=== PATIENT | female | born 1945 | race Caucasian/White ===

== ENCOUNTER 2019-08-01 14:56 | Outpatient (CLI) | payer BC | END 2019-08-01 14:57 | disposition home or self-care (01) | LOC: LAB 14:56 | PROVIDERS: ATTEND Internal Medicine Cardiovascular Disease | DX: I50.9 Heart failure, unspecified (principal); R06.89 Other abnormalities of breathing | CPT/HCPCS: 36415; 83735; 83880 ==

== ENCOUNTER 2020-05-19 10:34 | Outpatient (CLI) | payer BC | END 2020-05-19 10:35 | disposition home or self-care (01) | LOC: COV 10:34 | PROVIDERS: ATTEND Family Medicine | DX: R50.9 Fever, unspecified (principal); M79.10 Myalgia, unspecified site; R53.83 Other fatigue; R19.7 Diarrhea, unspecified; R11.10 Vomiting, unspecified; Z20.828 Contact with and (suspected) exposure to other viral communicable diseases ==

== ENCOUNTER 2021-01-31 14:32 | Outpatient (CLI) | payer BC | END 2021-01-31 14:33 | disposition home or self-care (01) | LOC: RT 14:32 | PROVIDERS: ATTEND Internal Medicine Cardiovascular Disease | DX: Z79.899 Other long term (current) drug therapy (principal) | CPT/HCPCS: 93005 ==

== ENCOUNTER 2021-02-19 13:56 | Outpatient (CLI) | payer MEDICARE | END 2021-02-19 13:57 | disposition home or self-care (01) | LOC: RT 13:56 | PROVIDERS: ATTEND Internal Medicine Cardiovascular Disease | DX: I48.0 Paroxysmal atrial fibrillation (principal); Z79.899 Other long term (current) drug therapy | CPT/HCPCS: 93005 ==

== ENCOUNTER 2023-12-13 11:40 | Outpatient (CLI) | payer MEDICARE | END 2023-12-13 22:55 | disposition EMS.NT | LOC: EMS 11:40 | DX: R58 Hemorrhage, not elsewhere classified (principal) ==

== ENCOUNTER 2025-03-14 14:40 | Inpatient (IN) ==
--- OUTSIDE RECORDS SUMMARY | 2025-03-14 15:17 | EXTERNAL MEDICAL SUMMARY RPT | Continuity of Care Document ---
Author Organization [place] Address [address] [place] [id number] Phone Problems date description facility 2024-12-24 10:49 Chronic systolic (congestive) h eart failure [facility] 2024-12-24 10:49 Other heart failure [facility] 2024-12-30 09:48 Chronic systolic (congestive) h eart failure [facility] 2024-12-30 09:48 Other heart failure [facility] 2025-01-02 13:13 Chronic systolic (congestive) h eart failure [facility] 2025-01-02 13:13 Other heart failure [facility] Social History date description facility
[2025-03-14 15:36] LABS: HCT - HEMATOCRIT 42.0 % (37.0-47.0); HGB - HEMOGLOBIN 13.6 g/dL (12.0-16.0); MEAN PLATELET VOLUME 10.8 fL (7.9-10.8); NRBC ABSOLUTE COUNT (AUTO) 0.00 x10^3/uL; NUCLEATED RED BLOOD CELLS AUTO 0.0 /100WBC; PLT - PLATELET COUNT 136 10^3/uL (130-450); RED CELL DISTRIBUTION WIDTH 17.2 % (12.0-15.0)
[2025-03-14 15:47] LABS: ALT ALANINE AMINOTRANSFERASE 23.0 IU/L (10-60); AST ASPARTATE AMINOTRANSFERASE 19.0 IU/L (10-42); BUN - BLOOD UREA NITROGEN 26.0 mg/dL (6-20); CARBON DIOXIDE - CO2 29.0 mmol/L (21-32); CREATININE 1.1 mg/dL (0.6-1.3); GFR - MDRD 48.0 (>89)
[2025-03-14 16:40] LABS: KETONES,URINE (UA) NEGATIVE (NEGATIVE); OCCULT BLOOD,URINE TRACE-LYSED (NEGATIVE)
[2025-03-14 16:41] LABS: GLUCOSE, URINE (UA) 100 mg/dL (NEGATIVE)
[2025-03-14 16:45] LABS: SQUAMOUS EPITHELIAL CELL,UR FEW Squamous (<= Few)
--- NOTE | 2025-03-14 17:01 | ED Physician Documentation ---
History of Present Illness Stated complaint Stated Complaint: ABD PX, NAUSEA Chief complaint Chief Complaint: Abd Pain History obtained from History obtained from: Patient History of Present Illness Pain level max: 8 Pain level now: 6 Additonal information Additional information: Patient is a 72-year-old female states that she has been feeling like she has been constipated for the past 3 days with the abdominal pain and discomfort. States that no change with senna, Colace, MiraLAX and a suppository today. Had increasing abdominal pain today, contacted her PCP who recommended she come to the emergency department for evaluation. No fevers. No chills. Nausea but no vomiting. Has had a cholecystectomy in the past but states no other abdominal surgeries. No urinary symptoms. Review of Systems Constitutional Denies: Fever or Chills Ears, nose, mouth, and throat Denies: Neck pain Respiratory Denies: Cough Gastrointestinal Reports: Nausea; Denies: Vomiting, [place]arcus blood emesis, Coffee grounds in vomit, Melena or Blood in stool Genitourinary Denies: Painful urination, Urinary frequency, Urinary urgency or Urinary incontinence Musculoskeletal Denies: Back pain or Neck pain Integumentary/Breast Denies: Rash Meds/Allgy Home Medications Ambulatory Orders Medication Instructions Recorded Confirmed apixaban 5 mg tablet (Eliquis) 5 mg PO BID 03/03/24 atorvastatin 20 mg tablet 20 mg PO DAILY 03/03/2402/26 fentanyl 12 mcg/hr transdermal 1 patch topical Q72H 10/21/24 patch gabapentin 300 mg capsule 300 mg PO BID 03/03/2410/21 ondansetron HCl 4 mg tablet 4 mg PO Q8H PRN nausea and 03/03/24 10/21/24 vomiting #20 tabs prochlorperazine maleate 10 mg 10 mg PO QID PRN nausea and 10/17/24 10/21/24 tablet (Compazine) vomiting #10 tabs amiodarone 200 mg tablet 200 mg PO DAILY 10/21/24 duloxetine 30 mg capsule,delayed 30 mg PO DAILY 03/14/25 release fentanyl 25 mcg/hr transdermal 1 patch transdermal Q72 H 10/21/24 10/21/24 patch gabapentin 100 mg capsule 100 mg PO QPM PRN pain 10/2110/21/24 metoprolol succinate 25 mg 25 mg PO DAILY 10/21/24 tablet,extended release 24 hr omeprazole 20 mg capsule,delayed 20 mg PO DAILY 10/21/24 release dronedarone 400 mg tablet (Multaq) 400 mg PO BID 10/2403/14/25 furosemide 20 mg tablet (Lasix) 20 mg PO BID #60 tabs 10/24/24 03/14/25 nitrofurantoin 100 mg PO BID #6 caps monohydrate/macrocrystals 100 mg capsule potassium chloride 20 mEq 20 meq PO DAILY #30 tabs tablet,extended release(part/cryst) (Klor-Con M) Allergies Allergies Allergy/AdvReac Type Severity Reaction Status Date / Time cephalexin (From Keflex) Allergy Severe Rash Verified 03/14/25 16:30 meperidine (From Demerol) AdvReac Intermediate Nausea Verified 03/14/25 16:30 oxycodone AdvReac Intermediate Nausea Verified 03/14/25 16:30 PFSH Active Problems All Active Problems (Updated 03/14/25 @ 19:05 by Paul Harrington MD) Pancreatitis (Acute) Hypokalemia (Acute) UTI due to Klebsiella species (Acute) Wide-complex tachycardia (Acute) Elevated liver enzymes (Acute) Acute kidney injury superimposed on chronic kidney disease (Acute) Heart failure (Acute) Chronic renal insufficiency (Acute) Hypercalcemia (Acute) Cardiomyopathy (Acute) Intractable nausea and vomiting (Acute) Carpal tunnel syndrome (Acute) Nausea (Acute) Wrist fracture (Acute) Medical History Medical History (Updated 03/14/25 @ 19:05 by Paul Harrington MD) Hyponatremia Social History Social History If you are a former smoker, when did you quit? (Date/Year): 1967 Number of Years Smoked: 4 Living arrangement: At home Marital Status: Living Condition: Alone Support Person: No Physical Activity: Walking Level: Independent Do you feel safe in your home environment?: Yes History of physical, verbal, emotional, or financial abuse?: No ETOH Use: Wine Frequency: Daily Substance Use: denies use Are you sexually active?: No POLST Patient has POLST: No Exam Exam Vital Signs: Vital Signs x48h Temp Pulse Resp BP Pulse Ox 03/14/25 20:00 78 18 117/60 98 03/14/25 18:11 70 111/71 97 03/14/25 16:51 63 117/58 L 94 03/14/25 14:51 36 C L 75 18 123/62 96 Constitutional normal general appearance and no apparent distress HENMT oropharynx normal moist mucous membranes Eyes PERRL Neck/C-Spine visual inspection normal Respiratory breath sounds equal bilaterally, normal respiratory effort and clear to auscultation bilaterally Cardiovascular normal heart rate noted and regular rhythm noted Gastrointestinal abdomen normal to inspection, abdomen soft to palpation and nondistended Diffusely tender to palpation without peritoneal signs. Genitourinary no CVA tenderness Extremities no edema Neurology speech normal Psychiatry mental status grossly normal and oriented x3 Skin skin color normal Results Vitals Vitals: Vital Signs - 24 hr 03/14/25 14:51 03/14/25 16:51 03/14/25 18:11 Temperature 36 C L Pulse Rate 75 63 70 Respiratory Rate 18 Blood Pressure 123/62 117/58 L 111/71 O2 Saturation 96 94 97 O2 Source Room air Room air Pain Intensity 8 03/14/25 19:21 03/14/25 20:00 03/14/25 21:15 Temperature Pulse Rate 78 Respiratory Rate 18 Blood Pressure 117/60 O2 Saturation 98 O2 Source Room air Pain Intensity 5 9 9 Oxygen O2 Source Room air Labs Labs: Laboratory Tests 03/14/25 03/14/25 15:04 15:29 WBC 12.1 H RBC 4.72 Hgb 13.6 Hct 42.0 MCV 89.0 MCH 28.8 MCHC 32.4 RDW 17.2 H Plt Count 136 MPV 10.8 Neut # (Auto) 10.7 H Lymph # (Auto) 0.3 L [place] # (Auto) 1.0 Eos # (Auto) 0.0 Baso # (Auto) 0.0 Absolute Nucleated RBC 0.00 Nucleated RBC % 0.0 Sodium 133 L Potassium 4.0 Chloride 93 L Carbon Dioxide 29 Anion Gap 11.0 BUN 26 H Creatinine 1.1 Estimated GFR (MDRD) 48 L Glucose 75 Calcium 10.7 H Total Bilirubin 1.3 H AST 19 ALT 23 Alkaline Phosphatase 95 Total Protein 5.9 L Albumin 3.5 Globulin 2.4 Albumin/Globulin Ratio 1.5 Lipase 44 Urine Color YELLOW Urine Clarity CLEAR Urine pH 6.0 Ur Specific [place] 1.015 Urine Protein NEGATIVE Urine Glucose (UA) 100 H Urine Ketones NEGATIVE Urine Occult Blood TRACE-LYSED Urine Nitrite NEGATIVE Urine Bilirubin NEGATIVE Urine Urobilinogen 0.2 (NORMAL) Ur Leukocyte Esterase NEGATIVE Urine RBC 0-5 Urine WBC 0-3 Ur Squamous Epith Cells FEW Squamous Urine Bacteria Rare Urine Mucus Few Strands Ur Microscopic Review INDICATED Urine Culture Comments NOT INDICATED Rads (name of study) ct abd/pel: Relevant Findings:: Final report received PD Medical Decision Making ED course Complexity details: reviewed results, considered differential and d/w patient ED course: 80-year-old female with abdominal pain. She has interstitial pancreatitis on CT scan. Her lipase is normal, white blood cell count mildly elevated. Started on IV fluids, pain well-controlled. No beds available in the hospital tonight, therefore will be boarded in the emergency department overnight pending bed availability. Patient signed out to Dr. Power overnight. This document was made in part using voice recognition software. While efforts are made to proofread this document, sound alike and grammatical errors may occur. Discharge Plan Discharge Patient Disposition: 66 [facility] DC/Xfer Condition: Good Clinical Impression: Pancreatitis Qualifiers: Chronicity: acute Pancreatitis type: unspecified pancreatitis type Acute pancreatitis complication: unspecified Qualified Code(s): K85.90 - Acute pancreatitis without necrosis or infection, unspecified Prescriptions: No Action Eliquis 5 mg tablet 5 mg PO BID atorvastatin 20 mg tablet 20 mg PO DAILY Patient Comments: take 1 tablet by mouth once daily fentanyl 12 mcg/hr patch 72 hour 1 patch topical Q72H Patient Comments: apply 1 patch to SKIN every 72 hours for chronic pain ROTATE APPLICATION SITE. MUST LAST 30 DAYS gabapentin 300 mg capsule 300 mg PO BID Patient Comments: take 1 capsule by mouth twice a day ondansetron HCl 4 mg tablet 4 mg PO Q8H PRN (Reason: nausea and vomiting) Qty: 20 0RF prochlorperazine maleate [Compazine] 10 mg tablet 10 mg PO QID PRN (Reason: nausea and vomiting) Qty: 10 0RF amiodarone 200 mg tablet 200 mg PO DAILY Patient Comments: take 1 tablet by mouth once daily duloxetine 30 mg capsule,delayed release(DR/EC) 30 mg PO DAILY Patient Comments: take 1 capsule by mouth once daily gabapentin 100 mg capsule 100 mg PO QPM PRN (Reason: pain) Patient Comments: take 1 capsule by mouth once daily at bedtime if needed IN ADDITION TO 300 MG CAPSULE metoprolol succinate 25 mg tablet extended release 24 hr 25 mg PO DAILY Patient Comments: take 1 tablet by mouth once daily omeprazole 20 mg capsule,delayed release(DR/EC) 20 mg PO DAILY Patient Comments: take 1 capsule by mouth once daily 30 MINUTES BEFORE A MEAL fentanyl 25 mcg/hr patch 72 hour 1 patch transdermal Q72H Rx Instructions: Apply 1 patch to skin every 72 hours nitrofurantoin monohyd/m-cryst 100 mg Capsule 100 mg PO BID Qty: 6 0RF furosemide [Lasix] 20 mg tablet 20 mg PO BID Qty: 60 2RF potassium chloride [Klor-Con M20] 20 mEq tablet,ER particles/crystals 20 meq PO DAILY Qty: 30 2RF Multaq 400 mg tablet 400 mg PO BID Patient Comments: take 1 tablet by mouth three times a day with meals Print Language: Argentine
--- NOTE | 2025-03-14 18:36 | CT Report ---
PROCEDURE: CT Abdomen/Pelvis W INDICATIONS: diffuse abd pain x 3 days CONTRAST: omni 300, 100ml TECHNIQUE: After the administration of intravenous contrast, a CT scan of the abdomen and pelvis was performed. Images were recorded and evaluated at appropriate window settings. Reformats: coronal and sagittal. For radiation dose reduction, the following was used: automated exposure control, adjustment of mA and/or kV according to patient size. COMPARISON: None. FINDINGS: Image quality: Diagnostic. Lower chest: Cardiomegaly. Partially imaged cardiac pacemaker. Moderate hiatal hernia. Liver: No contour-deforming mass. Gallbladder: Cholecystectomy. Biliary tree: No intrahepatic or extrahepatic dilation, accounting for age. Spleen: No splenomegaly. Pancreas: Peripancreatic fat stranding. Heterogenous appearance of the pancreas with enlargement of the head. Multiple new cystic areas of hypoattenuation which may represent contrast phase timing. No peripancreatic fluid collection. Adrenals: No adrenal nodule. Kidneys and ureters: No hydronephrosis. No contour-deforming mass. Stomach, bowel and peritoneum: No gastric or small bowel dilation. No abnormal wall thickening. Trace free intraperitoneal fluid. Appendix: Not identified. Lymph nodes: No central or retroperitoneal adenopathy. Vessels: No infrarenal aortic aneurysm. Reproductive organs: Right ovarian cyst measuring 2.3 cm in greatest dimension, unchanged. Bladder: No abnormal bladder wall thickening. No calcified bladder stones. Pelvic lymph nodes: No adenopathy by size criteria. Bones: Left innominate Paget's disease. Moderate degenerative changes of the lower lumbar spine. Other: Abdominal wall is intact. IMPRESSION: Acute interstitial edematous pancreatitis. The pancreatic head is substantially enlarged compared to prior examination which is presumed to be due to swelling. Follow-up examination in 1 to 3 months with dedicated pancreatic MRI or CT after acute process has resolved to exclude pancreatic mass recommended. Reviewed by: Suman Brenner MD on 03/14/2025 6:33 PM PDT Approved by: Suman Brenner MD on 03/14/2025 6:33 PM PDT Station ID: [email or web address]
[2025-03-14] MEDS: SODIUM CHLORIDE 0.9% 1,000 ML IV STA (19:21)
[2025-03-14] MEDS: HYDROmorphone 0.5 MG/0.5 ML SYRINGE IVP STA (19:21)
[2025-03-14] MEDS ORDERED: NALOXONE 0.4 MG/ML VIAL ONE (21:12)
[2025-03-14] MEDS: HYDROmorphone 0.5 MG/0.5 ML SYRINGE IVP PRN (21:15)
--- NOTE | 2025-03-14 22:14 | ED Physician Documentation ---
ED Addendum Addendum Addendum: I received signout/turnover of care on this patient from Dr. Harrington; please see his note for complete H&P. Test completed prior to turnover of care are consistent with acute interstitial pancreatitis. Patient is being held in the ED due to lack of available beds at [facility]. Care of patient is turned over the oncoming ED physician (Dr. Felder) at the end of my shift. Discharge Plan Discharge Patient Disposition: [facility] DC/Xfer Condition: Good Clinical Impression: Pancreatitis Qualifiers: Chronicity: acute Pancreatitis type: unspecified pancreatitis type Acute pancreatitis complication: unspecified Qualified Code(s): K85.90 - Acute pancreatitis without necrosis or infection, unspecified Prescriptions: No Action Eliquis 5 mg tablet 5 mg PO BID atorvastatin 20 mg tablet 20 mg PO DAILY Patient Comments: take 1 tablet by mouth once daily fentanyl 12 mcg/hr patch 72 hour 1 patch topical Q72H Patient Comments: apply 1 patch to SKIN every 72 hours for chronic pain ROTATE APPLICATION SITE. MUST LAST 30 DAYS gabapentin 300 mg capsule 300 mg PO BID Patient Comments: take 1 capsule by mouth twice a day ondansetron HCl 4 mg tablet 4 mg PO Q8H PRN (Reason: nausea and vomiting) Qty: 20 0RF amiodarone 200 mg tablet 200 mg PO DAILY Patient Comments: take 1 tablet by mouth once daily duloxetine 30 mg capsule,delayed release(DR/EC) 30 mg PO DAILY Patient Comments: take 1 capsule by mouth once daily gabapentin 100 mg capsule 100 mg PO QPM PRN (Reason: pain) Patient Comments: take 1 capsule by mouth once daily at bedtime if needed IN ADDITION TO 300 MG CAPSULE metoprolol succinate 25 mg tablet extended release 24 hr 25 mg PO DAILY Patient Comments: take 1 tablet by mouth once daily fentanyl 25 mcg/hr patch 72 hour 1 patch transdermal Q72H Rx Instructions: Apply 1 patch to skin every 72 hours potassium chloride [Klor-Con M20] 20 mEq tablet,ER particles/crystals 20 meq PO DAILY Qty: 30 2RF Multaq 400 mg tablet 400 mg PO BID Patient Comments: take 1 tablet by mouth three times a day with meals Jardiance 10 mg tablet 10 mg PO DAILY torsemide 20 mg tablet 20 mg PO BID Patient Comments: morning and after lunch metoprolol succinate 50 mg tablet extended release 24 hr 50 mg PO DAILY spironolactone 25 mg tablet 25 mg PO DAILY nystatin 100,000 unit/gram powder 1 applic TOPICAL DAILY nystatin 100,000 unit/gram cream 1 applic TOPICAL DAILY PRN (Reason: rash) Print Language: Kiswahili
[2025-03-14] MEDS: HYDROmorphone 1 MG/ML CARPUJECT IVP STA (22:50)
[2025-03-15] MEDS: SODIUM CHLORIDE 0.9% 1,000 ML IV STA (02:39)
[2025-03-15 07:02] LABS: HCT - HEMATOCRIT 39.5 % (37.0-47.0); HGB - HEMOGLOBIN 12.8 g/dL (12.0-16.0); MEAN PLATELET VOLUME 11.1 fL (7.9-10.8); NRBC ABSOLUTE COUNT (AUTO) 0.00 x10^3/uL; NUCLEATED RED BLOOD CELLS AUTO 0.0 /100WBC; PLT - PLATELET COUNT 127 10^3/uL (130-450); RED CELL DISTRIBUTION WIDTH 17.5 % (12.0-15.0)
--- NOTE | 2025-03-15 07:30 | ED Physician Documentation ---
ED Addendum Addendum Addendum: 80-year-old female handed off to me at [address] Power. Patient presented with worsening abdominal pain overnight, found to have interstitial pancreatitis. At time of handoff she was awaiting placement. During my shift she required additional pain control, and had a hypoglycemic episode in which her glucose dropped to 27. She was given D50, and started on D5 NS. She had stable blood sugars afterward. She was ultimately mated to the hospital during my shift and transferred to the floor. Otherwise remained stable. Discharge Plan Discharge Patient Disposition: 66 [facility] DC/Xfer Condition: Good Clinical Impression: Pancreatitis Qualifiers: Chronicity: acute Pancreatitis type: unspecified pancreatitis type Acute pancreatitis complication: unspecified Qualified Code(s): K85.90 - Acute pancreatitis without necrosis or infection, unspecified Interventions: ED Transfer Assessment Last Done: 03/15/25 16:50 Vitals documented within 30 minutes of discharge?: Yes
[2025-03-15 08:20] LABS: ALT ALANINE AMINOTRANSFERASE 21.0 IU/L (10-60); AST ASPARTATE AMINOTRANSFERASE 19.0 IU/L (10-42); BUN - BLOOD UREA NITROGEN 24.0 mg/dL (6-20); CARBON DIOXIDE - CO2 28.0 mmol/L (21-32); CREATININE 1.0 mg/dL (0.6-1.3); GFR - MDRD 53.0 (>89)
[2025-03-15] MEDS: DEXTROSE 50% ABBOJECT 25 GM/50 ML SYRINGE IVP STA (08:32)
[2025-03-15] MEDS: DEXTROSE 5%-0.9% NACL 1,000 ML IV STA (09:12)
[2025-03-15] MEDS: METOPROLOL SUCCINATE 25 MG TABLET PO SCH (09:36)
[2025-03-15] MEDS: APIXABAN 5 MG TABLET PO SCH (09:39)
[2025-03-15] MEDS: ATORVASTATIN 10 MG TABLET PO SCH (09:40)
[2025-03-15] MEDS: AMIODARONE 200 MG TABLET PO SCH (09:40)
--- NOTE | 2025-03-15 14:40 | HISTORY & PHYSICAL EXAMINATION ---
<Statement entered by Yayo Cruz, DO - 03/15/25 19:13> I was present with the DEVAUGHN student on the hospitalist service. I personally verified the history of present illness and performed the physical examination and medical decision making. I have verified the students documentation for this encounter and agree with the plan of care below. In addition very pleasant 80-year-old female with a past medical history of HFrEF (EF 20%), uncomplicated opioid dependence, hypertensive cardiomyopathy, hypertension, CKD, atrial fibrillation who is presenting with abdominal pain since last Monday and found to have acute interstitial edematous pancreatitis. No evidence of biliary involvement, normal liver enzymes, minimal bili increase, no ductal dilation. She has a history of cholecystectomy remotely. She still having a lot of pain on my exam. She is on chronic fentanyl patches for arthritis. She is not opiate juan. Will transition her to LR. She is hungry, and we will start early refeeding per guideline. I am increasing her fluid rate but not dramatically per the waterfall trial. Ideally would use NSAIDs, but not appropriate given her heart failure and renal history. Will schedule out Tylenol, oral and IV Dilaudid available for breakthrough pain with fairly liberal intervals. We added on additional labs on her admission including rechecking her CMP which was mostly normal. She has a low potassium that we will replete. Her LDH is low graciously. No signs of acute inflammation. Her PTH consistent with her outpatient record, and I am curious if this is contributing to her presentation. Will monitor lab in AM. Overall by Tyrese's criteria, her presentation is reassuring at this time. PCP note from today, patient is DNR. She has a POLST at home. We may repeat that this hospitalization. I updated her son Marvin by phone. He lives in [place] notably and is on [facility]. Chief Complaint Chief Complaint Chief Complaint: Abdominal pain History of Present Illness Admitted From Admitted From:: Home History Obtained From Records Reviewed: EHR History obtained from: Patient, EHR History of Present Illness HPI Comment/Other: Cyndie Rod is a 80-year-old female with past medical history of HFrEF, cardiomyopathy, a-fib, and wide complex tachycardia s/p bi-ventricular pacemaker who presents with 5 days of progressively worsening abdominal pain and CT abdomen findings consistent with pancreatitis. Ms. Rod's story begins on 03/10 when she felt constipated with general malaise, for which she took senna x 3 without relief. 03/11, she continued to feel constipation/malaise and consumed a dose of miralax and colace. She states she listened to her bowel tones which were still present. On 03/12, she took another dose of miralax and passed hard stool, which she describes as "1.5-2in rocks with some rabbit pellets." Evening of 03/13, her abdominal discomfort turned into severe abdominal pain for which she called her primary care provider, who advised her to seek urgent medical evaluation; she subsequently presented to [facility] ED. She describes her pain as 9-10/10 and sharp, cramping, tender, in the generalized abdomen. The location of pain varies, at times it is in the bilateral flank and sometimes localized to the RUQ. There is associated nausea, without vomiting. There is midepigastric tenderness. She has had decreased appetite, with only clear liquid consumption since 03/10. She hasn't noted any other bowel abnormalities aside from constipation, no melena. No urinary habit changes or hematuria. In the ED, workup was remarkable for leukocytosis to 12.9. UA neg. CT abdomen notable for acute interstitial edematous pancreatitis. She was started on maintenance NS. 03/15 AM she was hypoglycemic as low as BG 47 and switched to D5NS. She recieved analgesia for her abdominal pain with Dilaudid 0.5mg, for which she required every 2-4 hours. She remained in the ED until evening of 03/15 due to bed inavailability at [facility]. She is admitted to the Hospitalist service for further evaluation of pancreatitis. Meds/Allgy Home Medications Ambulatory Orders Medication Instructions Recorded Confirmed apixaban 5 mg tablet (Eliquis) 5 mg PO BID 03/03/24 atorvastatin 20 mg tablet 20 mg PO DAILY 03/03/2402/26 fentanyl 12 mcg/hr transdermal 1 patch topical Q72H 03/14/25 patch gabapentin 300 mg capsule 300 mg PO BID 03/03/2403/14 ondansetron HCl 4 mg tablet 4 mg PO Q8H PRN nausea and 03/03/24 03/14/25 vomiting #20 tabs amiodarone 200 mg tablet 200 mg PO DAILY 10/21/24 duloxetine 30 mg capsule,delayed 30 mg PO DAILY 03/14/25 release fentanyl 25 mcg/hr transdermal 1 patch transdermal Q72 H 10/21/24 03/14/25 patch gabapentin 100 mg capsule 100 mg PO QPM PRN pain 10/2103/14/25 metoprolol succinate 25 mg 25 mg PO DAILY 10/21/24 tablet,extended release 24 hr dronedarone 400 mg tablet (Multaq) 400 mg PO BID 10/2403/14/25 potassium chloride 20 mEq 20 meq PO DAILY #30 tabs 03/14/25 tablet,extended release(part/cryst) (Klor-Con M) empagliflozin 10 mg tablet 10 mg PO DAILY 03/14/25 (Jardiance) metoprolol succinate 50 mg 50 mg PO DAILY 03/14/25 tablet,extended release 24 hr nystatin 100,000 unit/gram topical 1 applic topical DA TOMÁS PRN rash 03/14/25 03/14/25 cream nystatin 100,000 unit/gram topical 1 applic topical DA TOMÁS rash 03/14/25 03/14/25 powder spironolactone 25 mg tablet 25 mg PO DAILY 03/14/25 torsemide 20 mg tablet 20 mg PO BID 03/14/25 Allergies Allergies Allergy/AdvReac Type Severity Reaction Status Date / Time cephalexin (From Keflex) Allergy Severe Rash Verified 03/14/25 16:30 meperidine (From Demerol) AdvReac Intermediate Nausea Verified 03/14/25 16:30 oxycodone AdvReac Intermediate Nausea Verified 03/14/25 16:30 PFS Active Problems All Active Problems (Updated 03/15/25 @ 18:56 by Yary Guzman) Hypertension, essential, benign (Acute 03/11/10) Back pain, lumbosacral (Acute 04/24/10) Uncomplicated opioid dependence (Acute) Leukocytosis (Acute) Hypoglycemia (Acute) Abdominal pain (Acute) Pancreatitis (Acute) Hypokalemia (Acute) Wide-complex tachycardia (Chronic) Heart failure (Acute) Chronic renal insufficiency (Chronic) Hypercalcemia (Acute) Cardiomyopathy (Acute) Carpal tunnel syndrome (Chronic) Medical History Medical History (Updated 03/15/25 @ 18:56 by Yary Guzman) Lupus (03/11/10) Clostridium difficile colitis (03/11/10) Anemia (12/23/08) History of arthritis Wrist fracture History of cardiac pacemaker Hyponatremia Surgical History Surgical History (Updated 03/15/25 @ 18:18 by Yayo Cruz, DO) History of cholecystectomy Social History Social History (Updated 03/15/25 @ 19:09 by Yary Guzman) Smoking Status: Former smoker If you are a former smoker, when did you quit? (Date/Year): 1966 Number of Years Smoked: 6 Do you dip or chew tobacco?: No Do you vape?: No Living arrangement: At home Marital Status: Living Condition: Alone Support Person: No Relationship Notes: Son who lives in [place] and a close niece who lives in [place] Physical Activity: Walking Level: Independent Do you feel safe in your home environment?: Yes History of physical, verbal, emotional, or financial abuse?: No ETOH Use: Wine Frequency: Occasional ETOH - Additional Notes: 1 glass of wine rarely during special occasions, last drink was a few months ago Substance Use: denies use Occupation - Current: Previous ICU/ER nurse for 30 years at [employer] Retired: Yes POLST Patient has POLST: No POLST CPR Status: Do Not Attempt Resuscitation (DNAR) / Allow Natural Review of Systems Status of ROS: 10 or more systems reviewed and unremarkable except as noted in history and below Constitutional Reports: Chills Gastrointestinal Reports: Abdominal pain, Nausea and Poor appetite Prior Level of Functionality: Independently performs all ADLs at baselines. Does not use an assistive device. Exam Exam Vital Signs: Vital Signs x48h Temp Pulse Pulse Resp BP BP Pulse Ox 03/15/25 17:04 36.5 C 70 16 111/53 L 96 03/15/25 15:00 70 18 115/63 93 03/15/25 13:00 36.8 C 68 18 92/56 L 91 L Constitutional: Overall ill-appearing older adult female in NAD, she is in discomfort and repositions frequently. Integument: Hemosiderin deposition BLE. No open wounds or sores. Skin smooth, warm, dry and intact. HEENT: Wearing corrective lenses. Normocephalic, atraumatic. Facial features symmetrical at rest and with movement. Neck supple, no tenderness to palpation. Respiratory: Shallow respirations, pain-limited deep inspiration. Chest expansion symmetric. Lungs clear bilaterally on auscultation. No crackles, wheezes, rhonchi. Cardiac: Regular S1, S2 heart sounds. No murmur detected. Peripheral Vascular: 1-2+ BLE and pedal edema. Varicose veins. Venous stasis dermatitis. Warm and non-cyanotic. No edema. Gastrointestinal: Abdominal tenderness to deep palpation in all quadrants. Guarding to light palpation. No ecchymosis. Abdomen is warm and soft. Symmetrical, round contour. Musculoskeletal: Forward trunk lean during ambulation, likely secondary to pain. Full ROM in upper and lower extremities. Neurological: Alert, oriented x 4 to self, place, time, situation. Recent and remote memory intact. Calm, cooperative, follows commands. Mood appropriate to situation. Thought process coherent with appropriate judgment. Speech fluent. PERRLA. Motor strength and sensation grossly intact. Conclusion/Plan Problem List (1) Pancreatitis: Qualifiers: Acute pancreatitis complication: unspecified Chronicity: acute P ancreatitis type: unspecified pancreatitis type Qualified Code(s): K85.90 - Acute pancreatitis without necrosis or infection, unspecified (2) Leukocytosis: Qualifiers: Leukocytosis type: bandemia Qualified Code(s): D72.825 - Bandemia (3) Abdominal pain: Plan: Patient presents with severe abdominal pain, nausea, decreased appetite. Leukocytosis 12.9 with neutrophilia indicative of acute inflammatory process. Cr, Lipase/Amylase, LFTs, Lipid Panel grossly unremarkable. Bili mildly elevated 1.1. CT abdomen with acute edematous pancreatitis. Unclear what precipitated her pancreatitis; last alcohol beverage was months ago, she has had cholecystectomy, no history of viral infections, trauma to the abdomen, history of autoimmune process. Atorvastatin and Furosemide is on her medication list and could be potential culprits, however she has been taking these chronically. Ca was mildly elevated in the ED. Will treat for acute pancreatitis given diagnostic evidence. - Maintenance IVF with LR until adequate PO intake - Advance to full liquid diet now, has been NPO for 24 hours - Monitor VS per unit routine - Strict I/O - Trend CBC, CMP - Analgesic management: Apap, Dilaudid PO and Dilaudid IV - Antiemetics: Ondansetron 4mg PO/IV - Replete electrolytes as needed - Check lipid panel - Check CXR to round out infectious workup - Check PTH given mild hypercalcemia in ED Qualifiers: Abdominal location: generalized Qualified Code(s): R10.84 - Generalized abdominal pain (4) Hypoglycemia: Plan: BG readings as low as 47 in ED. No history of T2DM. Although elevated BG is what is most commonly seen with pancreatitis I wonder about a multifactorial component of inadequate PO intake and glucagon dysregulation causing her hypoglycemia. - BG ACHS to monitor for further episodes of hypoglycemia (5) Heart failure: Qualifiers: Heart failure chronicity: chronic Heart failure type: unspecified Q ualified Code(s): I50.9 - Heart failure, unspecified (6) Cardiomyopathy: Plan: Last Echo September demonstrates EF 20%. Taking metoprolol, empagliflozin, spironolactone. She is followed by Dr. Ferrara and Dr. Tamez with [facility]. She has BLE edema 1+ however she states that is baseline. She denies other acute symptoms of heart failure; no dyspnea, orthopnea. No crackles on auscultation. - IV Furosemide 40mg PRN if signs of fluid overload with maintenance IVF - Holding Torsemide at this time Qualifiers: Cardiomyopathy type: unspecified Qualified Code(s): I42.9 - Cardiomyopathy, unspecified (7) Wide-complex tachycardia: (8) History of cardiac pacemaker: Plan: EKG 03/15 grossly unchanged from September. She is taking amiodarone. Troponin here is negative. She denies chest pain, palpitations. - Noted history (9) Uncomplicated opioid dependence: Plan: Chronic Fentanyl patch use for generalized arthritis and back pain. - Dilaudid PO PRN Plan Inpatient Checklist Lines/Drains/Airways: PIV Fluids/Electrolytes/Nutrition: Maintenance IVF, Full liquid diet DVT Prophylaxis: Enoxaparin 40mg SQ Barriers to Discharge: Likely return to prior living situation pending resolving leukocytosis, tolerating PO intake, and improved pain control in 1-2 days Lab Results Lab results reviewed: Yes 03/15/25 06:53 03/15/25 17:21 Diagnostic Imaging Results Diagnostic Imaging Results: positive Final report reviewed and Read independently EKG Results EKG Interpreted Independently: Yes EKG Comparison: Unchanged from prior EKG
[2025-03-15 16:10] LABS: CHOL/HDL RATIO 3.0 (<4.4); LDL/HDL RATIO 1.5 (<4.4); VLDL CHOLESTEROL 13 mg/dL
[2025-03-15] MEDS ORDERED: oxyCODONE 5 MG TABLET PO PRN ×2 (16:45)
[2025-03-15] MEDS ORDERED: ACETAMINOPHEN 325 MG TABLET PO PRN (16:45)
--- OUTSIDE RECORDS SUMMARY | 2025-03-15 16:54 | EXTERNAL MEDICAL SUMMARY RPT | Continuity of Care Document ---
Author Organization [facility] Address [address] [place] [id number] Phone Problems date description facility 2024-12-24 10:49 Chronic systolic (congestive) h eart failure [facility] 2024-12-24 10:49 Other heart [facility] 2024-12-30 09:48 Chronic systolic (congestive) h eart failure [facility] 2024-12-30 09:48 [facility] 2025-01-02 13:13 Chronic systolic (congestive) h eart failure [facility] 2025-01-02 13:13 Other heart failure [facility] Results/Labs test date facility value unit notes Result panel 1 WBC,URINE 2025-03-14 15:04 [facility] 0-3 /hpf (missing) RBC,URINE 2025-03-14 15:04 [facility] 0-5 /hpf (missing) UROBILINOGEN,URIN E 2025-03-14 15:04 [facility] 0.2 (NORMAL) e.u./dl (missing) SPECIFIC GRAVITY,URINE 2025-03-14 15:04 [facility] 1.015 (missing) (missing) GLUCOSE, URINE (UA) 2025-03-14 15:04 [facility] 100 mg/dl (missing) PH,URINE 2025-03-14 15:04 [facility] 6.0 ph (missing) CLARITY,URINE 2025-03-14 15:04 [facility] CLEAR (missing) (missing) SQUAMOUS EPITHELIAL CELL,UR 2025-03-14 15:04 [facility] FEW Squamous (missing) (missing) MUCUS,URINE 2025-03-14 15:04 [facility] Few Strands (missing) (missing) URINE MICROSCOPIC INDICATED? 2025-03-14 15:04 [facility] INDICATED (missing) (missing) LEUKOCYTE ESTERASE, URINE 2025-03-14 15:04 [facility] NEGATIVE (missing) (missing) NITRITE,URINE 2025-03-14 15:04 [facility] NEGATIVE (missing) (missing) BILIRUBIN,URINE 2025-03-14 15:04 [facility] NEGATIVE (missing) Bilirubin can be influenced by color interference. Please correlate positive results with clinical presentation KETONES,URINE (UA) 2025-03-14 15:04 [facility] NEGATIVE mg/dl (missing) PROTEIN,URINE 2025-03-14 15:04 [facility] NEGATIVE mg/dl (missing) UR CULTURE IF IND 2025-03-14 15:04 [facility] NOT INDICATED (missing) (missing) BACTERIA,URINE 2025-03-14 15:04 [facility] Rare /hpf (missing) OCCULT BLOOD,URINE 2025-03-14 15:04 [facility] TRACE-LYSED (missing) (missing) COLOR,URINE 2025-03-14 15:04 [facility] YELLOW (missing) URINE RANDOM Result panel 2 NUCLEATED RED BLOOD CELLS AUTO 2025-03-14 15:29 [facility] 0.0 /100wbc (missing) BASOPHILS # (AUTO) 2025-03-14 15:29 [facility] 0.0 10 3/ul (missing) EOSINOPHILS # (AUTO) 2025-03-14 15:29 [facility] 0.0 10 3/ul (missing) NRBC ABSOLUTE COUNT (AUTO) 2025-03-14 15:29 [facility] 0.00 x10 3/ul (missing) LYMPHOCYTES # (AUTO) 2025-03-14 15:29 [facility] 0.3 10 3/ul (missing) MONOCYTES # (AUTO) 2025-03-14 15:29 [facility] 1.0 10 3/ul (missing) CREATININE 2025-03-14 15:29 [facility] 1.1 mg/dl As of November 2022 testing method has changed, this may include reference ranges. BILIRUBIN,TOTAL 2025-03-14 15:29 [facility] 1.3 mg/dl As of November 2022 testing method has changed, this may include reference ranges. ALBUMIN/GLOBULIN RATIO 2025-03-14 15:29 [facility] 1.5 (missing) (missing) NEUTROPHILS # (AUTO) 2025-03-14 15:29 [facility] 10.7 10 3/ul (missing) CALCIUM 2025-03-14 15:29 [facility] 10.7 mg/dl As of November 2022 testing method has changed, this may include reference ranges. MEAN PLATELET VOLUME 2025-03-14 15:29 [facility] 10.8 fl (missing) ANION GAP 2025-03-14 15:29 [facility] 11.0 (missing) (missing) WHITE BLOOD COUNT 2025-03-14 15:29 [facility] 12.1 x10 3/ul (missing) HGB - HEMOGLOBIN 2025-03-14 15:29 [facility] 13.6 g/dl (missing) SODIUM 2025-03-14 15:29 [facility] 133 mmol/l (missing) PLT - PLATELET COUNT 2025-03-14 15:29 [facility] 136 10 3/ul (missing) RED CELL DISTRIBUTION WIDTH 2025-03-14 15:29 [facility] 17.2 % (missing) AST ASPARTATE AMINOTRANSFERASE 2025-03-14 15:29 [facility] 19 iu/l As of November 2022 testing method has changed, this may include reference ranges. GLOBULIN 2025-03-14 15:29 [facility] 2.4 g/dl (missing) ALT ALANINE AMINOTRANSFERASE 2025-03-14 15:29 [facility] 23 iu/l As of November 2022 testing method has changed, this may include reference ranges. BUN - BLOOD UREA NITROGEN 2025-03-14 15:29 [facility] 26 mg/dl As of November 2022 testing method has changed, this may include reference ranges. MEAN CORPUSCULAR HEMOGLOBIN 2025-03-14 15:29 [facility] 28.8 pg (missing) CARBON DIOXIDE - CO2 2025-03-14 15:29 [facility] 29 mmol/l As of November 2022 testing method has changed, this may include reference ranges. ALBUMIN 2025-03-14 15:29 [facility] 3.5 g/dl As of November 2022 testing method has changed, this may include reference ranges. MEAN CORPUSCULAR HGB CONC 2025-03-14 15:29 [facility] 32.4 g/dl (missing) POTASSIUM 2025-03-14 15:29 [facility] 4.0 mmol/l As of November 2022 testing method has changed, this may include reference ranges. RED BLOOD COUNT 2025-03-14 15:29 [facility] 4.72 10 6/ul (missing) HCT - HEMATOCRIT 2025-03-14 15:29 [facility] 42.0 % (missing) LIPASE 2025-03-14 15:29 [facility] 44 u/l As of November 2022 testing method has changed, this may include reference ranges. GFR - MDRD 2025-03-14 15:29 [facility] 48 (missing) The IDMS-traceable MDRD Study Equation has been validated extensively in and populations between the ages of 18 and 70 with impaired kidney function (eGFR < 60 mL/min/1.73m2) and has shown good performance for patients with all common causes of kidney disease. Although this equation has not been validated for patients older than 70, an MDRD-derived eGFR may still be a useful tool for providers caring for patients older than 70. References: http://www.nkdep. nih.gov/lab-evalu ation/gfr/creatin ine-stand ardization, last updated July 2011. TOTAL PROTEIN 2025-03-14 15:29 [facility] 5.9 g/dl As of November 2022 testing method has changed, this may include reference ranges. GLUCOSE 2025-03-14 15:29 [facility] 75 mg/dl As of November 2022 testing method has changed, this may include reference ranges. MEAN CORPUSCULAR VOLUME 2025-03-14 15:29 [facility] 89.0 fl (missing) CHLORIDE 2025-03-14 15:29 [facility] 93 mmol/l As of November 2022 testing method has changed, this may include reference ranges. ALKALINE PHOSPHATASE 2025-03-14 15:29 [facility] 95 iu/l As of November 2022 testing method has changed, this may include reference ranges. Result panel 3 AMYLASE 2025-03-15 06:53 [facility] < 10 u/l As of November 2022 testing method has changed, this may include reference ranges. NUCLEATED RED BLOOD CELLS AUTO 2025-03-15 06:53 [facility] 0.0 /100wbc (missing) BASOPHILS # (AUTO) 2025-03-15 06:53 [facility] 0.0 10 3/ul (missing) EOSINOPHILS # (AUTO) 2025-03-15 06:53 [facility] 0.0 10 3/ul (missing) NRBC ABSOLUTE COUNT (AUTO) 2025-03-15 06:53 [facility] 0.00 x10 3/ul (missing) LYMPHOCYTES # (AUTO) 2025-03-15 06:53 [facility] 0.4 10 3/ul (missing) CREATININE 2025-03-15 06:53 [facility] 1.0 mg/dl As of November 2022 testing method has changed, this may include reference ranges. ALBUMIN/GLOBULIN RATIO 2025-03-15 06:53 [facility] 1.2 (missing) (missing) MONOCYTES # (AUTO) 2025-03-15 06:53 [facility] 1.2 10 3/ul (missing) BILIRUBIN,TOTAL 2025-03-15 06:53 [facility] 1.2 mg/dl As of November 2022 testing method has changed, this may include reference ranges. LDL/HDL RATIO 2025-03-15 06:53 [facility] 1.5 (missing) (missing) MEAN PLATELET VOLUME 2025-03-15 06:53 [facility] 11.1 fl (missing) NEUTROPHILS # (AUTO) 2025-03-15 06:53 [facility] 11.2 10 3/ul (missing) HGB - HEMOGLOBIN 2025-03-15 06:53 [facility] 12.8 g/dl (missing) WHITE BLOOD COUNT 2025-03-15 06:53 [facility] 12.9 x10 3/ul (missing) PLT - PLATELET COUNT 2025-03-15 06:53 [facility] 127 10 3/ul (missing) VLDL CHOLESTEROL 2025-03-15 06:53 [facility] 13 mg/dl (missing) SODIUM 2025-03-15 06:53 [facility] 135 mmol/l (missing) RED CELL DISTRIBUTION WIDTH 2025-03-15 06:53 [facility] 17.5 % (missing) AST ASPARTATE AMINOTRANSFERASE 2025-03-15 06:53 [facility] 19 iu/l As of November 2022 testing method has changed, this may include reference ranges. GLOBULIN 2025-03-15 06:53 [facility] 2.6 g/dl (missing) ALT ALANINE AMINOTRANSFERASE 2025-03-15 06:53 [facility] 21 iu/l As of November 2022 testing method has changed, this may include reference ranges. BUN - BLOOD UREA NITROGEN 2025-03-15 06:53 [facility] 24 mg/dl As of November 2022 testing method has changed, this may include reference ranges. HDL CHOLESTEROL 2025-03-15 06:53 [facility] 26 mg/dl Coronary Heart Disease Risk Classification HDL Level Risk factor < 40 mg/dL major risk > 60 mg/dL negative risk As of November 2022 testing method has changed, this may include reference ranges. CARBON DIOXIDE - CO2 2025-03-15 06:53 [facility] 28 mmol/l As of November 2022 testing method has changed, this may include reference ranges. MEAN CORPUSCULAR HEMOGLOBIN 2025-03-15 06:53 [facility] 29.4 pg (missing) CHOL/HDL RATIO 2025-03-15 06:53 [facility] 3.0 (missing) NATIONAL CHOLESTEROL GUIDELINE [facility] ([facility]) guidelines for classificaton, testing and management of cholesterol levels in adults over 20 years of age. This new classification creates three categories of risk for coronary heart disease, regardless of age or sex, according to total amd LDL cholesterols levels: Based on total cholesterol level Desirable <200 mg/dl Borderline-high 200-239 mg/dl High >=240 mg/dl Based on cholesterol ratio CHD RISK CHOL/HDL RATIO MALE FEMALE 0.5 x Average 3.4 3.3 1.0 x Average 5.0 4.4 2.0 x Average 9.6 7.1 3.0 x Average 13.5 11.0 ALBUMIN 2025-03-15 06:53 [facility] 3.1 g/dl As of November 2022 testing method has changed, this may include reference ranges. POTASSIUM 2025-03-15 06:53 [facility] 3.5 mmol/l As of November 2022 testing method has changed, this may include reference ranges. MEAN CORPUSCULAR HGB CONC 2025-03-15 06:53 [facility] 32.4 g/dl (missing) LDL CHOLESTEROL,CALCULATED 2025-03-15 06:53 [facility] 38 mg/dl LDLD REFERENCE RANGE AND CARDIOVASCULAR RISK: <130 mg/dL Desirable 130-159 mg/dL Borderline High Risk >160 mg/dL High Risk LIPASE 2025-03-15 06:53 [facility] 39 u/l As of November 2022 testing method has changed, this may include reference ranges. HCT - HEMATOCRIT 2025-03-15 06:53 [facility] 39.5 % (missing) RED BLOOD COUNT 2025-03-15 06:53 [facility] 4.35 10 6/ul (missing) GLUCOSE 2025-03-15 06:53 [facility] 47 mg/dl Critical result GLU 47 mg/dL called to and read back by DR PARRA/ED at 15-Mar-2025 08:18 [facility]. As of November 2022 testing method has changed, this may include reference ranges. TOTAL PROTEIN 2025-03-15 06:53 [facility] 5.7 g/dl As of November 2022 testing method has changed, this may include reference ranges. GFR - MDRD 2025-03-15 06:53 [facility] 53 (missing) The IDMS-traceable MDRD Study Equation has been validated extensively in and populations between the ages of 18 and 70 with impaired kidney function (eGFR < 60 mL/min/1.73m2) and has shown good performance for patients with all common causes of kidney disease. Although this equation has not been validated for patients older than 70, an MDRD-derived eGFR may still be a useful tool for providers caring for patients older than 70. References: http://www.nkdep.nih .gov/lab-evaluation/ gfr/creatinine-stand ardization, last updated July 2011. TRIGLYCERIDES 2025-03-15 06:53 [facility] 63 mg/dl Yes Triglyceride Risk Classification <150 mg/dL Normal 150-199 mg/dL Borderline High 200-499 mg/dL High >500 mg/dL Very High As of November 2022 testing method has changed, this may include reference ranges. CHOLESTEROL 2025-03-15 06:53 [facility] 77 mg/dl Total Cholesterol Risk Classification Cholesterol Level Risk Classification <200 mg/dL Desirable 200-239 mg/dL Borderline High >240 mg/dL High As of November 2022 testing method has changed, this may include reference ranges. ALKALINE PHOSPHATASE 2025-03-15 06:53 [facility] 80 iu/l As of November 2022 testing method has changed, this may include reference ranges. ANION GAP 2025-03-15 06:53 [facility] 9.0 (missing) (missing) CALCIUM 2025-03-15 06:53 [facility] 9.8 mg/dl As of November 2022 testing method has changed, this may include reference ranges. MEAN CORPUSCULAR VOLUME 2025-03-15 06:53 [facility] 90.8 fl (missing) CHLORIDE 2025-03-15 06:53 [facility] 98 mmol/l As of November 2022 testing method has changed, this may include reference ranges. Result panel 4 GLUCOSE, WHOLE BLOOD 2025-03-15 08:30 [facility] 27 (missing) (missing) Result panel 5 GLUCOSE, WHOLE BLOOD 2025-03-15 09:12 [facility] 91 (missing) (missing) Result panel 6 GLUCOSE, WHOLE BLOOD 2025-03-15 10:13 [facility] 100 (missing) (missing) Result panel 7 GLUCOSE, WHOLE BLOOD 2025-03-15 13:22 [facility] 120 (missing) (missing) Social History date description facility
[2025-03-15 17:41] LABS: ALT ALANINE AMINOTRANSFERASE 20.0 IU/L (10-60); AST ASPARTATE AMINOTRANSFERASE 18.0 IU/L (10-42); BUN - BLOOD UREA NITROGEN 19.0 mg/dL (6-20); CARBON DIOXIDE - CO2 31.0 mmol/L (21-32); CREATININE 1.0 mg/dL (0.6-1.3); GFR - MDRD 53.0 (>89)
[2025-03-15 17:48] LABS: TROPONIN I HIGH SENSITIVITY 8.4 ng/L (2.3-14.8)
[2025-03-15] MEDS: SODIUM CHLORIDE FLUSH 0.9% 10 ML SYRINGE IVP SCH (18:10)
[2025-03-15] MEDS ORDERED: FUROSEMIDE 40 MG/4 ML VIAL IVP PRN (18:52)
--- NOTE | 2025-03-15 19:04 | ADVANCE CARE PLANNING NOTE ---
Advance Care Planning Planning Encounter Date: 03/15/25 Time: 19:01 Diagnosis for Encounter (1) Pancreatitis: Qualifiers: Acute pancreatitis complication: unspecified Chronicity: acute Pancreatitis type: unspecified pancreatitis type Qualified Code(s): K85.90 - Acute pancreatitis without necrosis or infection, unspecified (2) Leukocytosis: Qualifiers: Leukocytosis type: bandemia Qualified Code(s): D72.825 - Bandemia (3) Abdominal pain: Qualifiers: Abdominal location: generalized Qualified Code(s): R10.84 - Generalized abdominal pain (4) Hypoglycemia: (5) Heart failure: Qualifiers: Heart failure type: unspecified Heart failure chronicity: chronic Qualified Code(s): I50.9 - Heart failure, unspecified (6) Cardiomyopathy: Qualifiers: Cardiomyopathy type: unspecified Qualified Code(s): I42.9 - Cardiomyopathy, unspecified (7) Wide-complex tachycardia: (8) History of cardiac pacemaker: Encounter Additional Discussion: Had a good conversation with the patient on admission. She is in pain due to her pancreatitis, but she is able to participate in the conversation with me she states good understanding of her current disease process with the pancreatitis and the treatments that we are attempting here. She had initially discussed that her CODE STATUS would be that she would want to "CPR, but nothing else". I frankly described to the patient that with her severe heart failure (EF 20%), she would have likely poor outcome from cardiopulmonary resuscitative efforts, and the fluid load that would come with that would almost certainly put her on life support and breathing machines for weeks, and that her risk of dying on those machines would be quite high. She looked quite shocked and said she would never want to be on a breathing machine, and I said in that case if she were to I would recommend that we just allow her a natural . She she endorse that she would want a natural . She describes actually that she has a POLST on her fridge at home that describes herself as DNR, selective treatment. I may attempt to redo her POLST here so we have a copy on file and to make sure that her POLST adequately reflects her wishes as I do not have a copy of it here. She states she has POA paperwork naming her son, Marvin her surrogate decision maker. He is her only child and she has no spouse. Therefore he is likely her legal next of kin by [place] law. I called her son and updated him on her status, he agreed with all of this plan and endorsed understanding of her wishes. Code Status: Do Not Attempt Resuscitation Time spent on advance care plannin
[2025-03-15] MEDS: LACTATED RINGERS 1,000 ML IV SCH (19:21)
[2025-03-15] MEDS: ACETAMINOPHEN 500 MG TABLET PO SCH (19:28)
[2025-03-15] MEDS: MELATONIN 3 MG TABLET PO SCH (19:28)
--- NOTE | 2025-03-15 19:38 | XRAY Report ---
PROCEDURE: XR Chest 1V INDICATIONS: abdominal pain TECHNIQUE: One view of the chest was acquired. COMPARISON: 10/17/2024 FINDINGS AND IMPRESSION: Decreased left lung base opacity and effusion. Possible trace effusion remains. No dense airspace disease elsewhere. Mild cardiomegaly. Unchanged mediastinal contours, with prominence of the right hilum. Degenerative osseous findings. Left chest wall pulse generator. Prominent gas-filled loops of bowel seen in the left upper quadrant. Reviewed by: Ubaldo Serrano MD on 03/15/2025 7:35 PM PDT Approved by: Ubaldo Serrano MD on 03/15/2025 7:35 PM PDT Station ID: [id number]
[2025-03-16] MEDS: ONDANSETRON 4 MG/2 ML VIAL IVP PRN (04:39)
[2025-03-16] MEDS: HYDROmorphone 0.5 MG/0.5 ML SYRINGE IVP ONE (05:52)
[2025-03-16 07:55] LABS: HCT - HEMATOCRIT 36.8 % (37.0-47.0); HGB - HEMOGLOBIN 11.7 g/dL (12.0-16.0); MEAN PLATELET VOLUME 10.6 fL (7.9-10.8); PLT - PLATELET COUNT 98.0 10^3/uL (130-450); RED CELL DISTRIBUTION WIDTH 17.6 % (12.0-15.0)
[2025-03-16 08:06] LABS: ALT ALANINE AMINOTRANSFERASE 21.0 IU/L (10-60); AST ASPARTATE AMINOTRANSFERASE 23.0 IU/L (10-42); BUN - BLOOD UREA NITROGEN 17.0 mg/dL (6-20); CARBON DIOXIDE - CO2 30.0 mmol/L (21-32); CREATININE 1.0 mg/dL (0.6-1.3); GFR - MDRD 53.0 (>89)
--- NOTE | 2025-03-16 08:22 | PROVIDER PROGRESS NOTE ---
Subjective Prog Note Date Prog Note Date: 03/16/25 Prog Note Time: 08:19 Subjective Subjective: Patient was doing quite a bit of pain overnight. Suspect that some of this was from losing ground after fluids were held during transfer. She has been started back on fluids as of the mine safety engineer hours. Received multiple doses of IV narcotic. Received oral narcotics as well. I have increased her dose of IV hydromorphone. I have added medium and high dose oral hydromorphone. Counseled the patient that orals may last longer in her system, and would encourage that. She states good understanding. Denies any fevers or chills. Denies chest pain or dyspnea. Leukocytosis resolved this morning. Creatinine remained stable with normal BUN. Remainder of her electrolytes are stable. She is satting fine on room air. Will remain hospitalized today as we continue IV fluids with close monitoring for volume overload as she is at risk with her heart failure. Will continue her on her oral heart failure meds at this time. She is not on Jardiance here because of her hypoglycemic episodes initially on arrival. Will hold off on resuming that. Otherwise starting back on loop diuretic and K sparing diuretic. She has as needed Lasix available IV if she is showing signs of congestion. Lungs sound clear for now. Continue pain management with both parenteral and enteral options. She is showing signs of having an appetite, and I have encouraged her to go slow but eat this morning. Current Medications Current Medications Current Medications: Current Medications Generic Name Dose Route Start Last Admin Trade Name Freq PRN Reason Stop Dose Admin Acetaminophen 1,000 mg 03/15/25 19:00 03/16/25 04:56 Acetaminophen 500 Mg Tablet PO 1,000 mg TID MERE Administration Amiodarone HCl 200 mg 03/15/25 09:00 03/15/25 09:40 Amiodarone 200 Mg Tablet PO 200 mg DAILY MERE Administration Apixaban 5 mg 03/15/25 09:00 03/15/25 20:49 Apixaban 5 Mg Tablet PO 5 mg BID MERE Administration Atorvastatin Calcium 20 mg 03/15/25 09:00 03/15/25 09:40 Atorvastatin 10 Mg Tablet PO 20 mg DAILY MERE Administration Duloxetine HCl 30 mg 03/15/25 09:00 03/15/25 09:39 Duloxetine 30 Mg Capsule PO 30 mg DAILY MERE Administration Fentanyl 1 patch 03/16/25 09:00 Fentanyl 12 Mcg Patch TOP Q3D [facility] Fentanyl 1 patch 03/16/25 09:00 Fentanyl 25 Mcg Patch TOP Q3D [facility] Furosemide 40 mg 03/15/25 18:52 Furosemide 40 Mg/4 Ml Vial IVP Q6H PRN Dyspnea Gabapentin 100 mg 03/15/25 08:29 Gabapentin 100 Mg Capsule PO PRN PRN PAIN 5-7 Hydromorphone HCl 1 mg 03/15/25 18:49 03/16/25 04:38 Hydromorphone 2 Mg Tablet PO 1 mg Q6HR PRN Administration Moderate Pain (Level 4-6) Hydromorphone HCl 1 mg 03/16/25 07:30 Hydromorphone 0.5 Mg/0.5 Ml Syringe IVP Q2H PRN Abdominal Pain Hydromorphone HCl 2 mg 03/16/25 07:31 Hydromorphone 2 Mg Tablet PO Q6HR PRN Severe Pain (Level 7-10) Lactated Ringer's 1,000 mls @ 125 mls/hr 03/15/25 18:00 03/16/25 03:05 Lr IV 125 mls/hr .Q8H MERE Administration Melatonin 3 mg 03/15/25 19:00 03/15/25 20:49 Melatonin 3 Mg Tablet PO Not Given QPM MERE Metoprolol Succinate 25 mg 03/15/25 09:00 03/15/25 09:36 Metoprolol Succinate 25 Mg Tablet PO Not Given DAILY MERE Ondansetron HCl 4 mg 03/15/25 16:45 Ondansetron Odt 4 Mg Tablet TL Q6HR PRN Nausea / Vomiting Ondansetron HCl 4 mg 03/15/25 16:45 03/16/25 04:39 Ondansetron 4 Mg/2 Ml Vial IVP 4 mg Q6HR PRN Administration Nausea / Vomiting Polyethylene Glycol 17 gm 03/16/25 09:00 Polyethylene Glycol 3350 17 Gm Packet PO DAILY MERE Senna 8.6 - 17.2 mg 03/16/25 09:00 Senna 8.6 Mg Tablet PO DAILY MERE Sodium Chloride 10 ml 03/15/25 16:45 Sodium Chloride Flush 0.9% 10 Ml Syringe IVP PRN PRN NEEDED PER PROVIDER ORDERS Sodium Chloride 10 ml 03/15/25 17:00 03/16/25 00:34 Sodium Chloride Flush 0.9% 10 Ml Syringe IVP Not Given 0100,0900,1700 MERE Trazodone HCl 50 mg 03/15/25 18:29 Trazodone 50 Mg Tablet PO QPM PRN Insomnia Objective Vital Signs/Intake & Output Vital Signs: Vital Signs x48h Temp Pulse Resp BP Pulse Ox 03/16/25 08:00 36.4 C L 73 12 108/56 L 97 03/16/25 00:40 36.5 C 73 16 102/57 L 96 Intake & Output: Intake & Output 03/13/25 03/14/25 03/15/25 03/16/25 23:59 23:59 23:59 23:59 Intake Total 3880 / 3880 1317 / 1317 Output Total 400 / 400 Balance 3480 / 3480 1302 / 1302 Weight (kg) 100 kg 77.5 kg Objective Comments/Other: GEN: No acute distress HEENT: NC/AT, normal appearance of external ears and nose. Hearing baseline. Cardiac: Regular rate and rhythm, no murmurs. Trace to 1+ pitting edema bilaterally. Somewhat edematous in her upper extremities. Pulm: Lungs are clear to auscultation. No rhonchi or rales appreciated. No cough. Normal effort on room air. Abdomen: Soft, nondistended. Diffusely tender to deep palpation. No rebound tenderness or guarding. Neuro: Face symmetric, CN II through XII intact grossly. Gait exam deferred Psych: Mood euthymic with congruent affect. Lab Results 03/16/25 07:48 03/16/25 07:48 Other Labs: Lab Results x24hrs 03/16/25 03/16/25 03/15/25 Range/Units 07:48 07:47 19:22 WBC 8.0 (4.8-10.8) x10^3/uL RBC 3.98 L (4.20-5.40) 10^6/uL Hgb 11.7 L (12.0-16.0) g/dL Hct 36.8 L (37.0-47.0) % MCV 92.5 (81.0-99.0) fL MCH 29.4 (27.0-31.0) pg MCHC 31.8 L (32.0-36.0) g/dL RDW 17.6 H (12.0-15.0) % Plt Count 98 L (130-450) 10^3/uL MPV 10.6 (7.9-10.8) fL Sodium 135 (135-145) mmol/L Potassium 3.6 (3.5-4.5) mmol/L Chloride 100 L (101-111) mmol/L Carbon Dioxide 30 (21-32) mmol/L Anion Gap 5.0 L (6-13) BUN 17 (6-20) mg/dL Creatinine 1.0 (0.6-1.3) mg/dL Estimated GFR (MDRD) 53 L (>89) Glucose 83 (74-104) mg/dL POC Whole Bld Glucose 79 92 (70-100) mg/dL Calcium 9.7 (8.5-10.3) mg/dL Total Bilirubin 0.9 (0.2-1.0) mg/dL AST 23 (10-42) IU/L ALT 21 (10-60) IU/L Alkaline Phosphatase 84 (42-121) IU/L Lactate Dehydrogenase (140-271) IU/L Troponin I High Sens (2.3-14.8) ng/L Total Protein 5.3 L (6.4-8.9) g/dL Albumin 2.8 L (3.2-5.5) g/dL Globulin 2.5 (2.1-4.2) g/dL Albumin/Globulin Ratio 1.1 (1.0-2.2) Triglycerides mg/dL Cholesterol ( - 200) mg/dL LDL Cholesterol, Calc ( - 129) mg/dL VLDL Cholesterol mg/dL HDL Cholesterol (60 - ) mg/dL LDL/HDL Ratio (<4.4) Cholesterol/HDL Ratio (<4.4) Amylase (28-100) U/L Total Intact PTH (12-88) pg/mL 03/15/25 03/15/25 03/15/25 Range/Units 17:21 13:22 10:13 WBC (4.8-10.8) x10^3/uL RBC (4.20-5.40) 10^6/uL Hgb (12.0-16.0) g/dL Hct (37.0-47.0) % MCV (81.0-99.0) fL MCH (27.0-31.0) pg MCHC (32.0-36.0) g/dL RDW (12.0-15.0) % Plt Count (130-450) 10^3/uL MPV (7.9-10.8) fL Sodium 136 (135-145) mmol/L Potassium 3.0 L (3.5-4.5) mmol/L Chloride 100 L (101-111) mmol/L Carbon Dioxide 31 (21-32) mmol/L Anion Gap 5.0 L (6-13) BUN 19 (6-20) mg/dL Creatinine 1.0 (0.6-1.3) mg/dL Estimated GFR (MDRD) 53 L (>89) Glucose 107 H (74-104) mg/dL POC Whole Bld Glucose 120 100 (70-100) mg/dL Calcium 9.8 (8.5-10.3) mg/dL Total Bilirubin 1.1 H (0.2-1.0) mg/dL AST 18 (10-42) IU/L ALT 20 (10-60) IU/L Alkaline Phosphatase 75 (42-121) IU/L Lactate Dehydrogenase 108 L (140-271) IU/L Troponin I High Sens 8.4 (2.3-14.8) ng/L Total Protein 5.4 L (6.4-8.9) g/dL Albumin 3.0 L (3.2-5.5) g/dL Globulin 2.4 (2.1-4.2) g/dL Albumin/Globulin Ratio 1.3 (1.0-2.2) Triglycerides mg/dL Cholesterol ( - 200) mg/dL LDL Cholesterol, Calc ( - 129) mg/dL VLDL Cholesterol mg/dL HDL Cholesterol (60 - ) mg/dL LDL/HDL Ratio (<4.4) Cholesterol/HDL Ratio (<4.4) Amylase (28-100) U/L Total Intact PTH 119 H (12-88) pg/mL 03/15/25 03/15/25 03/15/25 Range/Units 09:12 08:30 06:53 WBC (4.8-10.8) x10^3/uL RBC (4.20-5.40) 10^6/uL Hgb (12.0-16.0) g/dL Hct (37.0-47.0) % MCV (81.0-99.0) fL MCH (27.0-31.0) pg MCHC (32.0-36.0) g/dL RDW (12.0-15.0) % Plt Count (130-450) 10^3/uL MPV (7.9-10.8) fL Sodium 135 (135-145) mmol/L Potassium 3.5 (3.5-4.5) mmol/L Chloride 98 L (101-111) mmol/L Carbon Dioxide 28 (21-32) mmol/L Anion Gap 9.0 (6-13) BUN 24 H (6-20) mg/dL Creatinine 1.0 (0.6-1.3) mg/dL Estimated GFR (MDRD) 53 L (>89) Glucose 47 L* (74-104) mg/dL POC Whole Bld Glucose 91 27 (70-100) mg/dL Calcium 9.8 (8.5-10.3) mg/dL Total Bilirubin 1.2 H (0.2-1.0) mg/dL AST 19 (10-42) IU/L ALT 21 (10-60) IU/L Alkaline Phosphatase 80 (42-121) IU/L Lactate Dehydrogenase (140-271) IU/L Troponin I High Sens (2.3-14.8) ng/L Total Protein 5.7 L (6.4-8.9) g/dL Albumin 3.1 L (3.2-5.5) g/dL Globulin 2.6 (2.1-4.2) g/dL Albumin/Globulin Ratio 1.2 (1.0-2.2) Triglycerides 63 mg/dL Cholesterol 77 ( - 200) mg/dL LDL Cholesterol, Calc 38 ( - 129) mg/dL VLDL Cholesterol 13 mg/dL HDL Cholesterol 26 L (60 - ) mg/dL LDL/HDL Ratio 1.5 (<4.4) Cholesterol/HDL Ratio 3.0 (<4.4) Amylase < 10 L (28-100) U/L Total Intact PTH (12-88) pg/mL Assessment/Plan Problem List (1) Pancreatitis: Impression: Improving. Patient pain control reasonable this morning. She is starting to eat and drink though very slowly Labs remain normal as of this morning. White count is resolved. Kidney function and BUN are normal. Recall the patient presented with typical pancreatitis pain, possibly starting 03/10. She has a negative lipase but this can happen in delayed cases of presentation. Imaging consistent with pancreatic head acute interstitial edematous pancreatitis. Overall low risk by Tyrese's criteria on admission of the age. WBC not profoundly elevated. Blood glucose is normal. LFTs not elevated. Her LDH was low. - Continue LR at 125/h, discontinue as soon as she is eating regularly. - Will advance diet to regular, low fiber - Continue enteral and parenteral pain medications - Consideration for REVENUE SPECIALIST, though literature indicates this likely extends length of stay and leads to higher opiates at discharge - Continue scheduled Tylenol 3 times daily - Avoiding NSAIDs in the setting of HFrEF - Monitor hematocrit, BUN, calcium, net I/O in a.m Qualifiers: Acute pancreatitis complication: unspecified Chronicity: acute P ancreatitis type: unspecified pancreatitis type Qualified Code(s): K85.90 - Acute pancreatitis without necrosis or infection, unspecified (2) Leukocytosis: Qualifiers: Leukocytosis type: bandemia Qualified Code(s): D72.825 - Bandemia (3) Abdominal pain: Impression: Improving. Patient pain control reasonable this morning. She is starting to eat and drink though very slowly Labs remain normal as of this morning. White count is resolved. Kidney function and BUN are normal. Recall the patient presented with typical pancreatitis pain, possibly starting 03/10. She has a negative lipase but this can happen in delayed cases of presentation. Imaging consistent with pancreatic head acute interstitial edematous pancreatitis. Overall low risk by Jarratt's criteria on admission of the age. WBC not profoundly elevated. Blood glucose is normal. LFTs not elevated. Her LDH was low. - Continue LR at 125/h, discontinue as soon as she is eating regularly. - Will advance diet to regular, low fiber - Continue enteral and parenteral pain medications - Consideration for REVENUE SPECIALIST, though literature indicates this likely extends length of stay and leads to higher opiates at discharge - Continue scheduled Tylenol 3 times daily - Avoiding NSAIDs in the setting of HFrEF - Monitor hematocrit, BUN, calcium, net I/O in a.m - Med ready when pain is controlled without parenteral opiates, eating, and fluids discontinued Qualifiers: Abdominal location: generalized Qualified Code(s): R10.84 - Generalized abdominal pain (4) Hypoglycemia: Impression: Patient transient episode of hypoglycemia in the ED, required dextrose rescue. Overall inconsistent with presentation to pancreatitis, but suspect this was due to taking her SGLT2 inhibitor and then not eating for almost 24 hours in the ED. - Continue q. ACHS BG monitoring for today, likely discontinue once eating (5) Heart failure: Qualifiers: Heart failure chronicity: chronic Heart failure type: unspecified Q ualified Code(s): I50.9 - Heart failure, unspecified (6) Cardiomyopathy: Impression: Continues to remain mostly euvolemic on exam. Some fluid in her lower extremities. She is getting somewhat edematous in her upper extremities. Denies dyspnea, orthopnea. Patient with a history of HFrEF, EF 20%. Overall NYHA class II, does get winded with climbing stairs. CARE SPECIALIST she is on GDMT with SGLT2i, MRA, metoprolol succinate. Not on GIL/ARB, may be due to blood pressures as she says she runs soft typically. - Continue home GDMT - Continue home torsemide - As needed IV Lasix 40 if she becomes dyspneic - Continue to evaluate fluid status daily clinically - Daily weights, strict I/O - Cardiac diet Qualifiers: Cardiomyopathy type: unspecified Qualified Code(s): I42.9 - Cardiomyopathy, unspecified (7) Wide-complex tachycardia: (8) History of cardiac pacemaker: (9) History of atrial fibrillation: Impression: Patient with longstanding persistent atrial fibrillation. History of wide- complex tachycardia as well as cardiac pacemaker placed. All likely secondary to her hypertensive versus ischemic cardiomyopathy. She had EKG and troponin on admission that were stable from baseline. She has stable left bundle branch block and left ventricular hypertrophy. 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 Degenerative changes in her lumbar spine. She is on gabapentin, duloxetine as adjunct of treatments Treats with fentanyl 37 mcg patches, every 72 hours, last changed 03/13 - Fentanyl patch is changed out today 03/16 - Continue gabapentin - Continue enteral and parenteral narcotics as above
[2025-03-16] MEDS: ONDANSETRON ODT 4 MG TABLET TL PRN (08:36)
[2025-03-16] MEDS: SENNA 8.6 MG TABLET PO SCH (08:41)
[2025-03-16] MEDS: fentaNYL 12 MCG PATCH TOP SCH (08:42)
[2025-03-16] MEDS: fentaNYL 25 MCG PATCH TOP SCH (08:43)
[2025-03-16] MEDS: SPIRONOLACTONE 25 MG TABLET PO SCH (08:48)
[2025-03-16] MEDS ORDERED: TORSEMIDE 20 MG PO SCH (09:00)
[2025-03-16] MEDS: BUMETANIDE 1 MG TABLET PO SCH (09:54)
[2025-03-16] MEDS: HYDROmorphone 0.5 MG/0.5 ML SYRINGE IVP PRN (09:56)
--- NOTE | 2025-03-16 13:40 | PHARMACY PROGRESS NOTE ---
Best Possible Medication History Admit Date and Time: 03/15/25 1418 Home Medications Medication Instructions Recorded Confirmed Type apixaban 5 mg tablet (Eliquis) 5 mg PO BID 03/03/24 History atorvastatin 20 mg tablet 20 mg PO DAILY 03/03/2402/26 History fentanyl 12 mcg/hr transdermal 1 patch topical Q72H 03/14/25 History patch gabapentin 300 mg capsule 300 mg PO BID 03/03/2403/14 History ondansetron HCl 4 mg tablet 4 mg PO Q8H PRN nausea and 03/03/24 03/14/25 Rx vomiting #20 tabs amiodarone 200 mg tablet 200 mg PO DAILY 10/21/24 History duloxetine 30 mg capsule,delayed 30 mg PO DAILY 03/14/25 History release fentanyl 25 mcg/hr transdermal 1 patch transdermal Q72 H 10/21/24 03/14/25 History patch gabapentin 100 mg capsule 100 mg PO QPM PRN pain 10/2103/14/25 History metoprolol succinate 25 mg 25 mg PO DAILY 10/21/24 History tablet,extended release 24 hr dronedarone 400 mg tablet (Multaq) 400 mg PO BID 10/2403/16/25 History potassium chloride 20 mEq 20 meq PO DAILY #30 tabs 03/14/25 Rx tablet,extended release(part/cryst) (Klor-Con M) empagliflozin 10 mg tablet 10 mg PO DAILY 03/14/25 History (Jardiance) metoprolol succinate 50 mg 50 mg PO DAILY 03/14/25 History tablet,extended release 24 hr nystatin 100,000 unit/gram topical 1 applic topical DA TOMÁS PRN rash 03/14/25 03/14/25 History cream nystatin 100,000 unit/gram topical 1 applic topical DA TOMÁS rash 03/14/25 03/14/25 History powder spironolactone 25 mg tablet 25 mg PO DAILY 03/14/25 History torsemide 20 mg tablet 20 mg PO BID 03/14/25 History omeprazole 40 mg capsule,delayed 40 mg PO DAILY PRN GE RD 03/16/25 03/16/25 History release Processed by: Pharmacy Medications reviewed in ED?: Yes Medication History completed: Yes Patient Interview: Completed Secondary Source(s): Insurance records [facility] Statement: As the person ultimately responsible for medication therapy, providers are able to order a medication from an existing home medication list in [facility] via the "Reconcile Routine" prior to Confirmation of that medication by desktop support consultant. Such practice is discouraged except when the physician, in their clinical judgment, deems that a medical need exists for a medication without regard to previous use.
[2025-03-17 05:31] LABS: HCT - HEMATOCRIT 38.1 % (37.0-47.0); HGB - HEMOGLOBIN 12.0 g/dL (12.0-16.0); MEAN PLATELET VOLUME 10.1 fL (7.9-10.8); PLT - PLATELET COUNT 116.0 10^3/uL (130-450); RED CELL DISTRIBUTION WIDTH 17.8 % (12.0-15.0)
[2025-03-17 05:51] LABS: ALT ALANINE AMINOTRANSFERASE 27.0 IU/L (10-60); AST ASPARTATE AMINOTRANSFERASE 28.0 IU/L (10-42); BUN - BLOOD UREA NITROGEN 21.0 mg/dL (6-20); CARBON DIOXIDE - CO2 31.0 mmol/L (21-32); CREATININE 1.4 mg/dL (0.6-1.3); GFR - MDRD 36.0 (>89)
--- NOTE | 2025-03-17 07:01 | Discharge Summary ---
Discharge Summary Admit Date: 03/15/25 Discharge Date: 03/17/25 Discharging Provider: Yayo Cruz Primary Care Provider: Rylan Stone Code Status: Do Not Attempt Resuscitation Discharge Facility Name: Home ALLERGIES Allergies Allergy/AdvReac Type Severity Reaction Status Date / Time cephalexin (From Keflex) Allergy Severe Rash Verified 03/14/25 16:30 meperidine (From Demerol) AdvReac Intermediate Nausea Verified 03/14/25 16:30 oxycodone AdvReac Intermediate Nausea Verified 03/14/25 16:30 MEDICATIONS Ambulatory Orders Medication Instructions Recorded Confirmed apixaban 5 mg tablet (Eliquis) 5 mg PO BID 03/03/24 atorvastatin 20 mg tablet 20 mg PO DAILY 03/03/2402/26 fentanyl 12 mcg/hr transdermal 1 patch topical Q72H 03/14/25 patch gabapentin 300 mg capsule 300 mg PO BID 03/03/2403/14 ondansetron HCl 4 mg tablet 4 mg PO Q8H PRN nausea and 03/03/24 03/14/25 vomiting #20 tabs amiodarone 200 mg tablet 200 mg PO DAILY 10/21/24 duloxetine 30 mg capsule,delayed 30 mg PO DAILY 03/14/25 release fentanyl 25 mcg/hr transdermal 1 patch transdermal Q72 H 10/21/24 03/14/25 patch gabapentin 100 mg capsule 100 mg PO QPM PRN pain 10/2103/14/25 metoprolol succinate 25 mg 25 mg PO DAILY 10/21/24 tablet,extended release 24 hr dronedarone 400 mg tablet (Multaq) 400 mg PO BID 10/2403/16/25 potassium chloride 20 mEq 20 meq PO DAILY #30 tabs 03/14/25 tablet,extended release(part/cryst) (Klor-Con M) empagliflozin 10 mg tablet 10 mg PO DAILY 03/14/25 (Jardiance) metoprolol succinate 50 mg 50 mg PO DAILY 03/14/25 tablet,extended release 24 hr nystatin 100,000 unit/gram topical 1 applic topical DA TOMÁS PRN rash 03/14/25 03/14/25 cream nystatin 100,000 unit/gram topical 1 applic topical DA TOMÁS rash 03/14/25 03/14/25 powder spironolactone 25 mg tablet 25 mg PO DAILY 03/14/25 torsemide 20 mg tablet 20 mg PO BID 03/14/25 omeprazole 40 mg capsule,delayed 40 mg PO DAILY PRN GE RD 03/16/25 03/16/25 release PHYSICAL EXAM AT DISCHARGE Vital Signs: Vital Signs x48h Temp Pulse Resp BP Pulse Ox 03/17/25 00:15 36.9 C 80 22 100/58 L 93 LABS 03/17/25 05:07 03/17/25 05:07 Discharge Plan Discharge Condition: Good Prescriptions: No Action Eliquis 5 mg tablet 5 mg PO BID atorvastatin 20 mg tablet 20 mg PO DAILY Patient Comments: take 1 tablet by mouth once daily fentanyl 12 mcg/hr patch 72 hour 1 patch topical Q72H Patient Comments: apply 1 patch to SKIN every 72 hours for chronic pain ROTATE APPLICATION SITE. MUST LAST 30 DAYS gabapentin 300 mg capsule 300 mg PO BID Patient Comments: take 1 capsule by mouth twice a day ondansetron HCl 4 mg tablet 4 mg PO Q8H PRN (Reason: nausea and vomiting) Qty: 20 0RF amiodarone 200 mg tablet 200 mg PO DAILY Patient Comments: take 1 tablet by mouth once daily duloxetine 30 mg capsule,delayed release(DR/EC) 30 mg PO DAILY Patient Comments: take 1 capsule by mouth once daily gabapentin 100 mg capsule 100 mg PO QPM PRN (Reason: pain) Patient Comments: take 1 capsule by mouth once daily at bedtime if needed IN ADDITION TO 300 MG CAPSULE metoprolol succinate 25 mg tablet extended release 24 hr 25 mg PO DAILY Patient Comments: take 1 tablet by mouth once daily fentanyl 25 mcg/hr patch 72 hour 1 patch transdermal Q72H Rx Instructions: Apply 1 patch to skin every 72 hours potassium chloride [Klor-Con M20] 20 mEq tablet,ER particles/crystals 20 meq PO DAILY Qty: 30 2RF Multaq 400 mg tablet 400 mg PO BID Patient Comments: take 1 tablet by mouth three times a day with meals Jardiance 10 mg tablet 10 mg PO DAILY torsemide 20 mg tablet 20 mg PO BID Patient Comments: morning and after lunch metoprolol succinate 50 mg tablet extended release 24 hr 50 mg PO DAILY spironolactone 25 mg tablet 25 mg PO DAILY nystatin 100,000 unit/gram powder 1 applic TOPICAL DAILY nystatin 100,000 unit/gram cream 1 applic TOPICAL DAILY PRN (Reason: rash) omeprazole 40 mg capsule,delayed release(DR/EC) 40 mg PO DAILY PRN (Reason: GERD) Patient Comments: TAKE 1 CAPSULE BY MOUTH ONCE DAILY 30 MINUTES BEFORE A MEAL Print Language: Icelandic Stand Alone Forms: PCP List Vitals documented within 30 minutes of discharge?: Yes
[2025-03-17] MEDS: GABAPENTIN 100 MG CAPSULE PO PRN (08:13)
[2025-03-17] MEDS: DOCUSATE SODIUM 250 MG CAPSULE PO SCH (08:13)
[2025-03-17] MEDS: LACTATED RINGERS 500 ML IV ONE (09:40)
--- NOTE | 2025-03-17 11:22 | PROVIDER PROGRESS NOTE ---
Subjective Prog Note Date Prog Note Date: 03/17/25 Prog Note Time: 11:21 Subjective Subjective: No acute events overnight. Patient's been off of fluids. She has been eating and drinking well. Her creatinine increased from 1-1.4 overnight. Notably she has CKD and this is towards her normal baseline. She is continue to require parenteral pain medications for control. Scheduling out her enteral pain meds today with the hope to wean her off of parenteral's. Likely discharge tomorrow at this rate. Giving additional fluid bolus given FRIEDA. She has ongoing abdominal pain. Denies chest pain, dyspnea, nausea or vomiting. Denies diarrhea or dysuria. Current Medications Current Medications Current Medications: Current Medications Generic Name Dose Route Start Last Admin Trade Name Freq PRN Reason Stop Dose Admin Acetaminophen 1,000 mg 03/15/25 19:00 03/17/25 05:08 Acetaminophen 500 Mg Tablet PO 1,000 mg TID MERE Administration Amiodarone HCl 200 mg 03/15/25 09:00 03/17/25 08:13 Amiodarone 200 Mg Tablet PO 200 mg DAILY MERE Administration Apixaban 5 mg 03/15/25 09:00 03/17/25 08:13 Apixaban 5 Mg Tablet PO 5 mg BID MERE Administration Atorvastatin Calcium 20 mg 03/15/25 09:00 03/17/25 08:12 Atorvastatin 10 Mg Tablet PO 20 mg DAILY MERE Administration Bumetanide 1 mg 03/16/25 09:00 03/17/25 08:12 Bumetanide 1 Mg Tablet PO 1 mg BID MERE Administration Docusate Sodium 250 - 500 mg 03/17/25 09:00 03/17/25 08:13 Docusate Sodium 250 Mg Capsule PO 250 mg DAILY MERE Administration Duloxetine HCl 30 mg 03/15/25 09:00 03/17/25 08:13 Duloxetine 30 Mg Capsule PO 30 mg DAILY MERE Administration Fentanyl 1 patch 03/16/25 09:00 03/16/25 08:42 Fentanyl 12 Mcg Patch TOP 1 patch Q3D MERE Administration Fentanyl 1 patch 03/16/25 09:00 03/16/25 08:43 Fentanyl 25 Mcg Patch TOP 1 patch Q3D MERE Administration Furosemide 40 mg 03/15/25 18:52 Furosemide 40 Mg/4 Ml Vial IVP Q6H PRN Dyspnea Gabapentin 100 mg 03/15/25 08:29 03/17/25 08:13 Gabapentin 100 Mg Capsule PO 100 mg PRN PRN Administration PAIN 5-7 Hydromorphone HCl 1 mg 03/16/25 07:30 03/17/25 08:11 Hydromorphone 0.5 Mg/0.5 Ml Syringe IVP 1 mg Q2H PRN Administration Abdominal Pain Hydromorphone HCl 2 mg 03/17/25 10:00 03/17/25 09:39 Hydromorphone 2 Mg Tablet PO 2 mg Q6H MERE Administration Melatonin 3 mg 03/15/25 19:00 03/16/25 21:40 Melatonin 3 Mg Tablet PO 3 mg QPM MERE Administration Metoprolol Succinate 25 mg 03/15/25 09:00 03/17/25 08:12 Metoprolol Succinate 25 Mg Tablet PO 25 mg DAILY MERE Administration Ondansetron HCl 4 mg 03/15/25 16:45 03/17/25 02:19 Ondansetron Odt 4 Mg Tablet TL 4 mg Q6HR PRN Administration Nausea / Vomiting Ondansetron HCl 4 mg 03/15/25 16:45 03/17/25 08:12 Ondansetron 4 Mg/2 Ml Vial IVP 4 mg Q6HR PRN Administration Nausea / Vomiting Polyethylene Glycol 17 gm 03/16/25 09:00 03/17/25 08:12 Polyethylene Glycol 3350 17 Gm Packet PO 17 gm DAILY MERE Administration Senna 8.6 - 17.2 mg 03/16/25 09:00 03/17/25 08:12 Senna 8.6 Mg Tablet PO 8.6 mg DAILY MERE Administration Sodium Chloride 10 ml 03/15/25 16:45 Sodium Chloride Flush 0.9% 10 Ml Syringe IVP PRN PRN NEEDED PER PROVIDER ORDERS Sodium Chloride 10 ml 03/15/25 17:00 03/17/25 08:13 Sodium Chloride Flush 0.9% 10 Ml Syringe IVP 10 ml 0100,0900,1700 MERE Administration Spironolactone 25 mg 03/16/25 09:00 03/17/25 08:12 Spironolactone 25 Mg Tablet PO 25 mg DAILY MERE Administration Trazodone HCl 50 mg 03/15/25 18:29 Trazodone 50 Mg Tablet PO QPM PRN Insomnia Objective Vital Signs/Intake & Output Vital Signs: Vital Signs x48h Temp Pulse Resp BP Pulse Ox 03/17/25 08:00 36.4 C L 77 20 113/62 95 Intake & Output: Intake & Output 03/14/25 03/15/25 03/16/25 03/17/25 23:59 23:59 23:59 23:59 Intake Total 3880 / 3880 3907 / 3907 1050 / 1050 Output Total 400 / 400 175 / 175 200 / 200 Balance 3480 / 3480 3732 / 3732 850 / 850 Weight (kg) 100 kg 77.5 kg Objective Comments/Other: GEN: No acute distress HEENT: NC/AT, normal appearance of external ears and nose. Hearing baseline. Cardiac: Regular rate and rhythm, no murmurs. Trace to 1+ pitting edema bilaterally. Somewhat edematous in her upper extremities. Pulm: Lungs are clear to auscultation. No rhonchi or rales appreciated. No cough. Normal effort on room air. Abdomen: Soft, nondistended. Diffusely tender to deep palpation. No rebound tenderness or guarding. Neuro: Face symmetric, CN II through XII intact grossly. Gait exam deferred Psych: Mood euthymic with congruent affect. Lab Results 03/17/25 05:07 03/17/25 05:07 Other Labs: Lab Results x24hrs 03/17/25 03/17/25 03/16/25 Range/Units 07:57 05:07 20:58 WBC 8.7 (4.8-10.8) x10^3/uL RBC 4.11 L (4.20-5.40) 10^6/uL Hgb 12.0 (12.0-16.0) g/dL Hct 38.1 (37.0-47.0) % MCV 92.7 (81.0-99.0) fL MCH 29.2 (27.0-31.0) pg MCHC 31.5 L (32.0-36.0) g/dL RDW 17.8 H (12.0-15.0) % Plt Count 116 L (130-450) 10^3/uL MPV 10.1 (7.9-10.8) fL Sodium 134 L (135-145) mmol/L Potassium 4.0 (3.5-4.5) mmol/L Chloride 98 L (101-111) mmol/L Carbon Dioxide 31 (21-32) mmol/L Anion Gap 5.0 L (6-13) BUN 21 H (6-20) mg/dL Creatinine 1.4 H (0.6-1.3) mg/dL Estimated GFR (MDRD) 36 L (>89) Glucose 87 (74-104) mg/dL POC Whole Bld Glucose 75 94 (70-100) mg/dL Calcium 10.0 (8.5-10.3) mg/dL Total Bilirubin 0.9 (0.2-1.0) mg/dL AST 28 (10-42) IU/L ALT 27 (10-60) IU/L Alkaline Phosphatase 92 (42-121) IU/L Total Protein 6.0 L (6.4-8.9) g/dL Albumin 3.1 L (3.2-5.5) g/dL Globulin 2.9 (2.1-4.2) g/dL Albumin/Globulin Ratio 1.1 (1.0-2.2) Lipase 49 (11-82) U/L 03/16/25 Range/Units 16:38 WBC (4.8-10.8) x10^3/uL RBC (4.20-5.40) 10^6/uL Hgb (12.0-16.0) g/dL Hct (37.0-47.0) % MCV (81.0-99.0) fL MCH (27.0-31.0) pg MCHC (32.0-36.0) g/dL RDW (12.0-15.0) % Plt Count (130-450) 10^3/uL MPV (7.9-10.8) fL Sodium (135-145) mmol/L Potassium (3.5-4.5) mmol/L Chloride (101-111) mmol/L Carbon Dioxide (21-32) mmol/L Anion Gap (6-13) BUN (6-20) mg/dL Creatinine (0.6-1.3) mg/dL Estimated GFR (MDRD) (>89) Glucose (74-104) mg/dL POC Whole Bld Glucose 122 (70-100) mg/dL Calcium (8.5-10.3) mg/dL Total Bilirubin (0.2-1.0) mg/dL AST (10-42) IU/L ALT (10-60) IU/L Alkaline Phosphatase (42-121) IU/L Total Protein (6.4-8.9) g/dL Albumin (3.2-5.5) g/dL Globulin (2.1-4.2) g/dL Albumin/Globulin Ratio (1.0-2.2) Lipase (11-82) U/L Assessment/Plan Problem List (1) Pancreatitis: Qualifiers: Acute pancreatitis complication: unspecified Chronicity: acute P ancreatitis type: unspecified pancreatitis type Qualified Code(s): K85.90 - Acute pancreatitis without necrosis or infection, unspecified (2) Leukocytosis: Qualifiers: Leukocytosis type: bandemia Qualified Code(s): D72.825 - Bandemia (3) Abdominal pain: Impression: Patient continues on normal diet. She is tolerating this well. No nausea or vomiting. Still using parenteral agents for pain control. Off of IV fluids. Good prognostics by Tyrese's criteria: No drop in hematocrit, BUN increase <5 points, calcium stable, white count remains normal. Creatinine increased as below Recall the patient presented with typical pancreatitis pain, possibly starting 03/10. She has a negative lipase but this can happen in delayed cases of presentation. Imaging consistent with pancreatic head acute interstitial edematous pancreatitis. Overall low risk by Tyrese's criteria on admission of the age. WBC not profoundly elevated. Blood glucose is normal. LFTs not elevated. Her LDH was low. - Continue Tylenol 1 g 3 times daily - Scheduling enteral opiates to wean off of parenteral or agents - Discussed with patient today, she is in agreement with this plan - Eating and drinking well, encouraged at least 2 L of fluid today. - CBC, CMP in the morning - Continues to do well from a CHF standpoint as below. Qualifiers: Abdominal location: generalized Qualified Code(s): R10.84 - Generalized abdominal pain (4) FRIEDA (acute kidney injury): Impression: Creatinine increased from 1.0-1.4 today. She is continuing good urine output. Unclear if this truly represents an FRIEDA. Last hospitalization her best renal function was a creatinine of 1.4. - Will give small fluid bolus today - Continue encouraged oral intake as above - If continues to worsen tomorrow, will get urine studies, though spot urine urea not available at this hospital (5) Hypoglycemia: Impression: Blood sugars remain normal patient is eating regularly. She does not have a history of diabetes. Recall that she had a transient episode of hypoglycemia in the ED. She required dextrose. This was all likely related to her SGLT2i and not eating for most 24 hours prior to admission. - Discontinue blood glucose checks - Resuming empagliflozin tomorrow (6) Heart failure: Qualifiers: Heart failure chronicity: chronic Heart failure type: unspecified Q ualified Code(s): I50.9 - Heart failure, unspecified (7) Cardiomyopathy: Impression: Grossly euvolemic on exam. She has 11+ pitting edema bilateral lower extremities. No profound JVP elevation. No rales in her lungs. Denies dyspnea or orthopnea. Patient with a history of HFrEF, EF 20%. Overall NYHA class II, does get winded with climbing stairs. VENEER MARKER she is on GDMT with SGLT2i, MRA, metoprolol succinate. Not on GIL/ARB, may be due to blood pressures as she says she runs soft typically. - Continue home GDMT, Resuming empagliflozin as above - Continue home torsemide - As needed IV Lasix 40 if she becomes dyspneic - Continue to evaluate fluid status daily clinically - Daily weights, strict I/O - Cardiac diet Qualifiers: Cardiomyopathy type: unspecified Qualified Code(s): I42.9 - Cardiomyopathy, unspecified (8) Wide-complex tachycardia: (9) History of cardiac pacemaker: (10) History of atrial fibrillation: Impression: Patient with longstanding persistent atrial fibrillation. History of wide- complex tachycardia as well as cardiac pacemaker placed. All likely secondary to her hypertensive versus ischemic cardiomyopathy. She had EKG and troponin on admission that were stable from baseline. She has stable left bundle branch block and left ventricular hypertrophy. - Monitor symptomatically for chest pain, denies - Continue amiodarone, metoprolol, atorvastatin - Continue VENEER MARKER DOAC (11) Uncomplicated opioid dependence: Impression: Her chronic pains are reasonably well-managed. Her fentanyl patch was exchanged on 03/16 History of polyarthropathy, mainly in her knees and feet. 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 Degenerative changes in her lumbar spine. She is on gabapentin, duloxetine as adjunct of treatments Treats with fentanyl 37 mcg patches, every 72 hours - Continue gabapentin - Continue APAP, enteral and parenteral narcotics as above
[2025-03-18 05:35] LABS: HCT - HEMATOCRIT 38.9 % (37.0-47.0); HGB - HEMOGLOBIN 12.5 g/dL (12.0-16.0); MEAN PLATELET VOLUME 11.6 fL (7.9-10.8); PLT - PLATELET COUNT 115.0 10^3/uL (130-450); RED CELL DISTRIBUTION WIDTH 17.6 % (12.0-15.0)
[2025-03-18 05:51] LABS: ALT ALANINE AMINOTRANSFERASE 24.0 IU/L (10-60); AST ASPARTATE AMINOTRANSFERASE 25.0 IU/L (10-42); BUN - BLOOD UREA NITROGEN 20.0 mg/dL (6-20); CARBON DIOXIDE - CO2 32.0 mmol/L (21-32); CREATININE 1.3 mg/dL (0.6-1.3); GFR - MDRD 40.0 (>89)
[2025-03-18] MEDS: EMPAGLIFLOZIN 10 MG TABLET PO SCH (08:28)
[2025-03-18] MEDS: GABAPENTIN 300 MG CAPSULE PO SCH (11:34)
--- NOTE | 2025-03-18 12:21 | PROVIDER PROGRESS NOTE ---
Subjective Subjective Subjective: This morning, patient continues to have abdominal pain. She rates it as severe. It starts in her right upper quadrant and epigastric region, and radiates to the left side of her abdomen. It is not controlled with oral Dilaudid, and she has required continued dosing of IV Dilaudid, which she is requiring as ordered. Her appetite is poor, but she has had no nausea or vomiting. Patient had a cholecystecomy many years ago. She denies any alcohol use. She was diagnosed with heart failure with reduced EF recently and placed on GDMT. She takes no supplements. Current Medications Current Medications Current Medications: Current Medications Generic Name Dose Route Start Last Admin Trade Name Freq PRN Reason Stop Dose Admin Acetaminophen 1,000 mg 03/15/25 19:00 03/18/25 05:05 Acetaminophen 500 Mg Tablet PO 1,000 mg TID MERE Administration Amiodarone HCl 200 mg 03/15/25 09:00 03/18/25 08:28 Amiodarone 200 Mg Tablet PO 200 mg DAILY MERE Administration Apixaban 5 mg 03/15/25 09:00 03/18/25 08:29 Apixaban 5 Mg Tablet PO 5 mg BID MERE Administration Atorvastatin Calcium 20 mg 03/15/25 09:00 03/18/25 08:28 Atorvastatin 10 Mg Tablet PO 20 mg DAILY MERE Administration Bumetanide 1 mg 03/16/25 09:00 03/18/25 08:28 Bumetanide 1 Mg Tablet PO 1 mg BID MERE Administration Docusate Sodium 250 - 500 mg 03/17/25 09:00 03/18/25 08:28 Docusate Sodium 250 Mg Capsule PO 250 mg DAILY MERE Administration Duloxetine HCl 30 mg 03/15/25 09:00 03/18/25 08:29 Duloxetine 30 Mg Capsule PO 30 mg DAILY MERE Administration Fentanyl 1 patch 03/16/25 09:00 03/16/25 08:42 Fentanyl 12 Mcg Patch TOP 1 patch Q3D MERE Administration Fentanyl 1 patch 03/16/25 09:00 03/16/25 08:43 Fentanyl 25 Mcg Patch TOP 1 patch Q3D MERE Administration Furosemide 40 mg 03/15/25 18:52 Furosemide 40 Mg/4 Ml Vial IVP Q6H PRN Dyspnea Gabapentin 100 mg 03/15/25 08:29 03/18/25 08:29 Gabapentin 100 Mg Capsule PO 100 mg PRN PRN Administration PAIN 5-7 Gabapentin 300 mg 03/18/25 12:00 03/18/25 11:34 Gabapentin 300 Mg Capsule PO 300 mg BID MERE Administration Hydromorphone HCl 1 mg 03/16/25 07:30 03/18/25 06:47 Hydromorphone 0.5 Mg/0.5 Ml Syringe IVP 1 mg Q2H PRN Administration Abdominal Pain Hydromorphone HCl 2 mg 03/17/25 10:00 03/18/25 09:36 Hydromorphone 2 Mg Tablet PO 2 mg Q6H MERE Administration Melatonin 3 mg 03/15/25 19:00 03/17/25 21:29 Melatonin 3 Mg Tablet PO 3 mg QPM MERE Administration Metoprolol Succinate 25 mg 03/15/25 09:00 03/18/25 08:29 Metoprolol Succinate 25 Mg Tablet PO 25 mg DAILY MERE Administration Ondansetron HCl 4 mg 03/15/25 16:45 03/17/25 02:19 Ondansetron Odt 4 Mg Tablet TL 4 mg Q6HR PRN Administration Nausea / Vomiting Ondansetron HCl 4 mg 03/15/25 16:45 03/17/25 08:12 Ondansetron 4 Mg/2 Ml Vial IVP 4 mg Q6HR PRN Administration Nausea / Vomiting Polyethylene Glycol 17 gm 03/16/25 09:00 03/18/25 08:28 Polyethylene Glycol 3350 17 Gm Packet PO 17 gm DAILY MERE Administration Senna 8.6 - 17.2 mg 03/16/25 09:00 03/18/25 08:29 Senna 8.6 Mg Tablet PO 8.6 mg DAILY MERE Administration Sodium Chloride 10 ml 03/15/25 16:45 Sodium Chloride Flush 0.9% 10 Ml Syringe IVP PRN PRN NEEDED PER PROVIDER ORDERS Sodium Chloride 10 ml 03/15/25 17:00 03/18/25 08:29 Sodium Chloride Flush 0.9% 10 Ml Syringe IVP 10 ml 0100,0900,1700 MERE Administration Spironolactone 25 mg 03/16/25 09:00 03/18/25 08:28 Spironolactone 25 Mg Tablet PO 25 mg DAILY MERE Administration Trazodone HCl 50 mg 03/15/25 18:29 Trazodone 50 Mg Tablet PO QPM PRN Insomnia Objective Vital Signs/Intake & Output Reviewed Vital Signs: Yes Vital Signs: Vital Signs x48h Temp Pulse Resp BP Pulse Ox O2 Flow Rate 03/18/25 08:33 97.5 F L 82 17 123/73 94 0 Intake & Output: Intake & Output 03/15/25 03/16/25 03/17/25 03/18/25 23:59 23:59 23:59 23:59 Intake Total 3880 / 3880 3907 / 3907 1790 / 1790 Output Total 400 / 400 175 / 175 1825 / 1825 300 / 300 Balance 3480 / 3480 3732 / 3732 -35 / -35 -300 / -300 Weight (kg) 77.5 kg 77.5 kg Objective General Appearance: positive Alert and Mild distress; negative Anxious Eyes Bilateral: positive Normal inspection, PERRL and EOMI ENT: positive ENT inspection nml, Pharynx nml and No signs of dehydration Neck: positive Nml inspection, Thyroid nml and No JVD Respiratory: positive Chest non-tender, No respiratory distress and Breath sounds nml; negative Wheezes, Rales or Rhonchi Cardiovascular: positive Regular rate & rhythm, No murmur and No gallop; negative Tachycardia or Systolic murmur Abdomen: positive Tenderness (Epigastric region, RUQ region - tender to even light palpation. No guarding or rigidity noted.); negative Guarding or Splenomegaly Back: positive Nml inspection; negative CVA tenderness (R) or CVA tenderness (L) Skin: positive Color nml, No rash, Warm and Dry Extremities: positive Non-tender, Full ROM, Nml appearance and No pedal edema Neurologic/Psychiatric: positive Oriented x3, Motor nml and Mood/affect nml Lab Results 03/18/25 05:07 03/18/25 05:07 Other Labs: Lab Results x24hrs 03/18/25 03/17/25 Range/Units 05:07 16:41 WBC 7.8 (4.8-10.8) x10^3/uL RBC 4.23 (4.20-5.40) 10^6/uL Hgb 12.5 (12.0-16.0) g/dL Hct 38.9 (37.0-47.0) % MCV 92.0 (81.0-99.0) fL MCH 29.6 (27.0-31.0) pg MCHC 32.1 (32.0-36.0) g/dL RDW 17.6 H (12.0-15.0) % Plt Count 115 L (130-450) 10^3/uL MPV 11.6 H (7.9-10.8) fL Sodium 136 (135-145) mmol/L Potassium 3.7 (3.5-4.5) mmol/L Chloride 99 L (101-111) mmol/L Carbon Dioxide 32 (21-32) mmol/L Anion Gap 5.0 L (6-13) BUN 20 (6-20) mg/dL Creatinine 1.3 (0.6-1.3) mg/dL Estimated GFR (MDRD) 40 L (>89) Glucose 68 L (74-104) mg/dL POC Whole Bld Glucose 80 (70-100) mg/dL Calcium 9.5 (8.5-10.3) mg/dL Total Bilirubin 0.8 (0.2-1.0) mg/dL AST 25 (10-42) IU/L ALT 24 (10-60) IU/L Alkaline Phosphatase 96 (42-121) IU/L Total Protein 5.6 L (6.4-8.9) g/dL Albumin 2.9 L (3.2-5.5) g/dL Globulin 2.7 (2.1-4.2) g/dL Albumin/Globulin Ratio 1.1 (1.0-2.2) Diagnostic Imaging Diagnostic Imaging Results: positive Final report reviewed Assessment/Plan Problem List (1) Pancreatitis: Qualifiers: Acute pancreatitis complication: unspecified Chronicity: acute P ancreatitis type: unspecified pancreatitis type Qualified Code(s): K85.90 - Acute pancreatitis without necrosis or infection, unspecified (2) Leukocytosis: Qualifiers: Leukocytosis type: bandemia Qualified Code(s): D72.825 - Bandemia (3) Abdominal pain: Impression: Patient presented with epigastric and right upper quadrant pain. Lipase levels within normal limits. CT abdomen/pelvis completed on 03/14 showed acute interstitial edematous pancreatitis with areas of cystic formation. Today, patient continues to have severe abdominal pain even to light palpation. CT abdomen/pelvis ordered today to assess for worsening in size of cysts, assess for IR drainage - stable appearance at this time. She does have a large stool burden which may be contributing further to her pain. Continue Miralax, senna, one time soap suds enema. For pain control: Will continue scheduled Tylenol, as well as patient's home fentanyl patch which she takes for chronic polyarthritis. Will assess how patient can do without parenteral narcotics, although she required a dose this morning. Continue oral Dilaudid as needed for severe pain. IV fluids were stopped, and patient was started on a regular diet. If pain continues to worsen, will make her n.p.o. again, and start IV fluids. Qualifiers: Abdominal location: generalized Qualified Code(s): R10.84 - Generalized abdominal pain (4) FRIEDA (acute kidney injury): Impression: Creatinine increased from 1.0 to 1.4 and now back down to 1.3. She is continuing good urine output. Unclear if this truly represents an FRIEDA. Last hospitalization her best renal function was a creatinine of 1.4. Continue encouraged oral intake as above (5) Hypoglycemia: Impression: Patient continues to have slight hypoglycemic episodes. Advised to hold Jardiance at this time. (6) Heart failure: Qualifiers: Heart failure chronicity: chronic Heart failure type: unspecified Q ualified Code(s): I50.9 - Heart failure, unspecified (7) Cardiomyopathy: Impression: Grossly euvolemic on exam. No profound JVP elevation. No rales in her lungs. Denies dyspnea or orthopnea. Patient with a history of HFrEF, EF 20%. Overall NYHA class II, does get winded with climbing stairs. Continue MRA, metoprolol succinate. Not on GIL/ARB, may be due to blood pressures as she says she runs soft typically. Continue home torsemide, daily weights, strict ins and outs. Qualifiers: Cardiomyopathy type: unspecified Qualified Code(s): I42.9 - Cardiomyopathy, unspecified (8) Wide-complex tachycardia: (9) History of cardiac pacemaker: (10) History of atrial fibrillation: Impression: Patient with longstanding persistent atrial fibrillation. History of wide- complex tachycardia as well as cardiac pacemaker placed. All likely secondary to her hypertensive versus ischemic cardiomyopathy. She had EKG and troponin on admission that were stable from baseline. She has stable left bundle branch block and left ventricular hypertrophy. Continue amiodarone, metoprolol, atorvastatin, Eliquis. (11) Uncomplicated opioid dependence: Impression: Her chronic pains are reasonably well-managed. Her fentanyl patch was exchanged on 03/16. History of polyarthropathy, mainly in her knees and feet. 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 Degenerative changes in her lumbar spine. Continue gabapentin, duloxetine, fentanyl 37 mcg patches.
--- NOTE | 2025-03-18 13:42 | CT Report ---
PROCEDURE: CT Abdomen/Pelvis W INDICATIONS: f/u pancreatitis, ?cyst CONTRAST: Omni 300 100ml TECHNIQUE: After the administration of intravenous contrast, a CT scan of the abdomen and pelvis was performed. Images were recorded and evaluated at appropriate window settings. Reformats: coronal and sagittal. For radiation dose reduction, the following was used: automated exposure control, adjustment of mA and/or kV according to patient size. COMPARISON: 03/14/2025 FINDINGS: Image quality: Diagnostic. Lower chest: Small bilateral pleural effusions with adjacent atelectasis. Large hiatal hernia is partially visualized. Cardiomegaly. Liver: No solid mass. Gallbladder: Surgically absent. Biliary tree: No intrahepatic or extrahepatic dilation, accounting for age. Spleen: No splenomegaly. Pancreas: Again seen heterogeneous enlarged appearance of the pancreatic head/uncinate process with areas of hypoattenuation. Peripancreatic edema is present. No pancreatic ductal dilation. Adrenals: No adrenal nodule. Kidneys and ureters: No hydronephrosis. No renal cystic lesion which requires follow up. No solid mass. Stomach, bowel and peritoneum: No gastric or small bowel dilation. No abnormal wall thickening. Small volume free fluid. Large stool burden through the colon. Lymph nodes: No central or retroperitoneal adenopathy. Vessels: No infrarenal aortic aneurysm. Patent portal vein. PELVIS Reproductive organs: Unremarkable. Bladder: No abnormal wall thickening. Pelvic lymph nodes: No pelvic adenopathy by size criteria. Bones: Degenerative changes of the spine. Decreased osseous mineralization. Heterogeneous sclerosis of the left pelvis, likely presenting Paget's disease. Stable compared to prior. Other: No significant ventral or inguinal hernia. Anasarca. IMPRESSION: 1. Again seen heterogeneous enlarged appearance of the pancreatic head/uncinate process with areas of hypoattenuation. Peripancreatic edema is present. Findings are concerning for acute pancreatitis. No organized fluid collections. Recommend follow-up MRI or CT after acute process to exclude underlying mass. 2. Small bilateral pleural effusions with adjacent atelectasis 3. Anasarca and small volume ascites, likely secondary to fluid overload. 4. Large stool burden, correlate for constipation. 5. Please see above for additional findings. Reviewed by: Kleber Flores MD on 03/18/2025 1:39 PM PDT Approved by: Kleber Flores MD on 03/18/2025 1:39 PM PDT Station ID: [id number]
[2025-03-18] MEDS: SOAP SUDS ENEMA 1 EACH RC ONE (14:53)
[2025-03-18] MEDS: LACTATED RINGERS 1,000 ML IV SCH (19:03)
[2025-03-18] MEDS: HYDROmorphone 0.5 MG/0.5 ML SYRINGE IVP PRN (19:44)
[2025-03-19 08:09] LABS: HCT - HEMATOCRIT 41.0 % (37.0-47.0); HGB - HEMOGLOBIN 13.1 g/dL (12.0-16.0); MEAN PLATELET VOLUME 10.2 fL (7.9-10.8); PLT - PLATELET COUNT 129.0 10^3/uL (130-450); RED CELL DISTRIBUTION WIDTH 17.6 % (12.0-15.0)
[2025-03-19 08:17] LABS: BUN - BLOOD UREA NITROGEN 19.0 mg/dL (6-20); CARBON DIOXIDE - CO2 34.0 mmol/L (21-32); CREATININE 1.1 mg/dL (0.6-1.3); GFR - MDRD 48.0 (>89)
--- NOTE | 2025-03-19 09:55 | PROVIDER PROGRESS NOTE ---
Subjective Prog Note Date Prog Note Date: 03/19/25 Prog Note Time: 10:20 Subjective Pt reports feeling: No change Subjective: Cyndie Rod is a 80-year-old female with past medical history of HFrEF (EF 20%), uncomplicated opioid dependence, hypertensive cardiomyopathy, hypertension, CKD, atrial fibrillation s/p PPM who presents for acute pancreatitis. Today, Cyndie continues to endorse severe abdominal pain requiring IV Dilaudid for control. Per MAR she has been needing it every 3-4 hours. She states she feels the IV form has a longer duration than the PO form, however she has only had one dose after changing frequency from q6h to q4h. She describes the pain as a localized RUQ 8-9/10 cramping, aching with generalized tenderness. Her pain is mostly unchanged from when she was first admitted. She was trialed with early refeeding, however 03/18 described severe post-prandial pain after breakfast and lunch thus she was made NPO again and restarted on IVF. She reports limited appetite. She denies nausea, vomiting. Has been passing flatus, no BM. She received a call from her electronic instrument trades worker stating that her repeat Echo within the past month demonstrated worsening heart function, and that she should schedule follow-up with her annual giving officer as soon as possible. She is concerned regarding how her acute pain and pancreatitis hospitalization is affecting her heart and if any changes should be made to hercurrent treatment plan. Current Medications Current Medications Current Medications: Current Medications Generic Name Dose Route Start Last Admin Trade Name Freq PRN Reason Stop Dose Admin Acetaminophen 1,000 mg 03/15/25 19:00 03/19/25 05:13 Acetaminophen 500 Mg Tablet PO 1,000 mg TID MERE Administration Amiodarone HCl 200 mg 03/15/25 09:00 03/18/25 08:28 Amiodarone 200 Mg Tablet PO 200 mg DAILY MERE Administration Apixaban 5 mg 03/15/25 09:00 03/18/25 22:28 Apixaban 5 Mg Tablet PO 5 mg BID MERE Administration Atorvastatin Calcium 20 mg 03/15/25 09:00 03/18/25 08:28 Atorvastatin 10 Mg Tablet PO 20 mg DAILY MERE Administration Bumetanide 1 mg 03/16/25 09:00 03/18/25 22:29 Bumetanide 1 Mg Tablet PO 1 mg BID MERE Administration Docusate Sodium 250 - 500 mg 03/17/25 09:00 03/18/25 08:28 Docusate Sodium 250 Mg Capsule PO 250 mg DAILY MERE Administration Duloxetine HCl 30 mg 03/15/25 09:00 03/18/25 08:29 Duloxetine 30 Mg Capsule PO 30 mg DAILY MERE Administration Fentanyl 1 patch 03/16/25 09:00 03/16/25 08:42 Fentanyl 12 Mcg Patch TOP 1 patch Q3D MERE Administration Fentanyl 1 patch 03/16/25 09:00 03/16/25 08:43 Fentanyl 25 Mcg Patch TOP 1 patch Q3D MERE Administration Furosemide 40 mg 03/15/25 18:52 Furosemide 40 Mg/4 Ml Vial IVP Q6H PRN Dyspnea Gabapentin 100 mg 03/15/25 08:29 03/18/25 08:29 Gabapentin 100 Mg Capsule PO 100 mg PRN PRN Administration PAIN 5-7 Gabapentin 300 mg 03/18/25 12:00 03/18/25 22:28 Gabapentin 300 Mg Capsule PO 300 mg BID MERE Administration Hydromorphone HCl 2 mg 03/18/25 12:41 03/18/25 13:24 Hydromorphone 2 Mg Tablet PO 2 mg Q4H PRN Administration Moderate Pain (Level 4-6) Hydromorphone HCl 1 mg 03/18/25 18:45 03/19/25 08:19 Hydromorphone 0.5 Mg/0.5 Ml Syringe IVP 1 mg Q3HR PRN Administration Severe Pain (Level 7-10) Lactated Ringer's 1,000 mls @ 75 mls/hr 03/18/25 19:00 03/19/25 05:15 Lr IV 75 mls/hr .[id number] MERE Administration Lactulose 10 gm 03/19/25 09:00 Lactulose 10 Gm /15 Ml Udc PO QID MERE Melatonin 3 mg 03/15/25 19:00 03/18/25 22:29 Melatonin 3 Mg Tablet PO 3 mg QPM MERE Administration Metoprolol Succinate 25 mg 03/15/25 09:00 03/18/25 08:29 Metoprolol Succinate 25 Mg Tablet PO 25 mg DAILY MERE Administration Ondansetron HCl 4 mg 03/15/25 16:45 03/17/25 02:19 Ondansetron Odt 4 Mg Tablet TL 4 mg Q6HR PRN Administration Nausea / Vomiting Ondansetron HCl 4 mg 03/15/25 16:45 03/17/25 08:12 Ondansetron 4 Mg/2 Ml Vial IVP 4 mg Q6HR PRN Administration Nausea / Vomiting Polyethylene Glycol 17 gm 03/16/25 09:00 03/18/25 08:28 Polyethylene Glycol 3350 17 Gm Packet PO 17 gm DAILY MERE Administration Senna 8.6 - 17.2 mg 03/16/25 09:00 03/18/25 08:29 Senna 8.6 Mg Tablet PO 8.6 mg DAILY MERE Administration Sodium Chloride 10 ml 03/15/25 16:45 Sodium Chloride Flush 0.9% 10 Ml Syringe IVP PRN PRN NEEDED PER PROVIDER ORDERS Sodium Chloride 10 ml 03/15/25 17:00 03/19/25 08:19 Sodium Chloride Flush 0.9% 10 Ml Syringe IVP 10 ml 0100,0900,1700 MERE Administration Spironolactone 25 mg 03/16/25 09:00 03/18/25 08:28 Spironolactone 25 Mg Tablet PO 25 mg DAILY MERE Administration Trazodone HCl 50 mg 03/15/25 18:29 Trazodone 50 Mg Tablet PO QPM PRN Insomnia Objective Vital Signs/Intake & Output Reviewed Vital Signs: Yes Intake & Output: Intake & Output 03/16/25 03/17/25 03/18/25 03/19/25 23:59 23:59 23:59 23:59 Intake Total 3907 / 3907 1790 / 1790 851 / 851 524 / 524 Output Total 175 / 175 1825 / 1825 2100 / 2100 300 / 300 Balance 3732 / 3732 -35 / -35 -1249 / -1249 224 / 224 Weight (kg) 77.5 kg 78.5 kg Objective Comments/Other: Constitutional: Overall well-groomed, ill-appearing older adult female who sits semi-Pratt's in hospital bedin [facility]. Integument: Venous stasis dermatitis BLE. Scattered solar lentigines BUE. Skin smooth, warm, dry and intact. HEENT: Wearing visual aids. Normocephalic, atraumatic. Facial features symmetrical at rest and with movement. Respiratory: Lungs diminished bilaterally at the bases. Chest expansion symmetric with unlabored, even respirations Cardiac: Regular S1, S2 heart sounds. No murmur detected. Peripheral Vascular: BLE edema 1+. Warm and non-cyanotic. Gastrointestinal: Tenderness to light palpation in all quadrants, most significant at McBurney's point. Mildly distended. Abdomen is warm, soft, and nontender. Symmetrical, round contour. Bowel tones audible and normoactive. Musculoskeletal: Full ROM in upper and lower extremities. Neurological: Alert, oriented x 4 to self, place, time, situation. Recent and remote memory intact. Calm, cooperative, follows commands. Mood appropriate to situation. Thought process coherent with appropriate judgment. Speech fluent. Lab Results 03/19/25 07:52 03/19/25 07:52 Other Labs: Lab Results x24hrs 03/19/25 Range/Units 07:52 WBC 8.9 (4.8-10.8) x10^3/uL RBC 4.49 (4.20-5.40) 10^6/uL Hgb 13.1 (12.0-16.0) g/dL Hct 41.0 (37.0-47.0) % MCV 91.3 (81.0-99.0) fL MCH 29.2 (27.0-31.0) pg MCHC 32.0 (32.0-36.0) g/dL RDW 17.6 H (12.0-15.0) % Plt Count 129 L (130-450) 10^3/uL MPV 10.2 (7.9-10.8) fL Sodium 136 (135-145) mmol/L Potassium 3.5 (3.5-4.5) mmol/L Chloride 98 L (101-111) mmol/L Carbon Dioxide 34 H (21-32) mmol/L Anion Gap 4.0 L (6-13) BUN 19 (6-20) mg/dL Creatinine 1.1 (0.6-1.3) mg/dL Estimated GFR (MDRD) 48 L (>89) Glucose 97 (74-104) mg/dL Calcium 9.2 (8.5-10.3) mg/dL Diagnostic Imaging Diagnostic Imaging Results: positive Final report reviewed Assessment/Plan Problem List (1) Pancreatitis: Qualifiers: Acute pancreatitis complication: unspecified Chronicity: acute P ancreatitis type: unspecified pancreatitis type Qualified Code(s): K85.90 - Acute pancreatitis without necrosis or infection, unspecified (2) Leukocytosis: Qualifiers: Leukocytosis type: bandemia Qualified Code(s): D72.825 - Bandemia (3) Abdominal pain: Impression: Patient initially presented with severe epigastric and RUQ abdominal pain with nausea, anorexia. CT abdomen was notable for acute edematous pancreatitis with cystic formations. Repeat CT abdomen done on 03/18 given persistent symptoms and showed stable findings but with large stool burden which may be contributing to symptoms. She also reported increased postprandial pain, bloating. 03/19 she continues to endorse abdominal pain and tenderness requiring IV pain alleviation every 3-4 hours. We are concerned whether refeeding was initiated too early, leading to her sustained symptoms. - NPO for now, will reassess frequently and potentially advance diet in the evening if patient feels she can tolerate - Light hydration with LR 75 ml/hr while patient has limited PO intake, to discontinue when diet is advanced - Multimodal analgesic management: o Changing PO Dilaudid to PO Apap-Hydrocodone and increasing frequency to q4h from q6h for better enteral pain control o Continue IV Dilaudid for severe breakthrough pain o Continue Fentanyl patch for chronic polyarthritis o Continue heat pad - Bowel regimen given imaging with large stool burden: Miralax, Senna, and starting Lactulose. Trialed enema without success 03/18; patient would not like to re-try. Qualifiers: Abdominal location: generalized Qualified Code(s): R10.84 - Generalized abdominal pain (4) FRIEDA (acute kidney injury): Impression: Cr increased from 1.0 to 1.4, now back down to 1.1 on 03/19. She has been producing adequate urine. - Trend BMP - Continue to encourage PO intake - Monitor I/O (5) Hypoglycemia: Impression: On admission patient BG down to 47. She continues to have intermittent hypoglycemia as low as 68. Overall this is inconsistent with pancreatitis, could be related to glucagon dysregulation or patient taking her Empagliflozin with limited oral intake. - Holding Empagliflozin at this time - Hypoglycemia protocol in place, check BG PRN (6) Heart failure: Qualifiers: Heart failure chronicity: chronic Heart failure type: unspecified Q ualified Code(s): I50.9 - Heart failure, unspecified (7) Cardiomyopathy: Impression: Patient has a history of HFrEF (EF 20% in September). She is on GDMT Metoprolol, Empagliflozin, Spironolactone. Unclear why she isn't on an GIL/ARB, however her BP does run soft even during prior hospital admissions which may be a factor. Endorses intermittent SOB at baseline with increased activity, overall not limiting her daily activities; NYHA Class II. Clinically she appears euvolemic, no crackles/rales, BLE edema is improved on my assessment since admission, no JVD. She denies dyspnea, orthopnea. - Continue GDMT medications while inpatient (Metoprolol, Empagliflozin, Spironolactone), holding Empagliflozin for now as above due to hypoglycemia - Scheduled Bumetanide as Torsemide unavailable in formulary - Strict intake/output, daily weights as able Qualifiers: Cardiomyopathy type: unspecified Qualified Code(s): I42.9 - Cardiomyopathy, unspecified (8) Wide-complex tachycardia: (9) History of cardiac pacemaker: (10) History of atrial fibrillation: Impression: Patient with longstanding persistent atrial fibrillation. 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 All likely secondary to her hypertensive versus ischemic cardiomyopathy. She had EKG and troponin on admission that demonstrated stable left bundle branch block and left ventricular hypertrophy. She currently denies chest pain and palpitations. - Continue Metoprolol, Amiodarone, Atorvastatin - Monitor symptomatically for cardiac symptoms - Continue home Eliquis (11) Uncomplicated opioid dependence: Impression: Patient has a history of chronic polyarthritis, mainly in the knees and feet, managed satisfactorily on her home regimen of Fentanyl Patch, Gabapentin, and Duloxetine. 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 - Continue Fentanyl Patch, last changed 03/19 - Continue adjunct home regimen Gabapentin, Duloxetine Inpatient Checklist Lines/Drains/Airways: PIV Fluids/Electrolytes/Nutrition: NPO, LR 75cc/h DVT Prophylaxis: Patient has been ambulating in the room, continuing home DOAC Barriers to Discharge: Persistent abdominal pain, tolerating PO intake
[2025-03-19] MEDS: LACTULOSE 10 GM /15 ML UDC PO SCH (10:10)
[2025-03-19] MEDS: SODIUM CHLORIDE FLUSH 0.9% 10 ML SYRINGE IVP PRN (12:21)
[2025-03-19] MEDS: HYDROcod/ACETAM 5/325 MG TABLET PO PRN (14:06)
[2025-03-19] MEDS: DEXTROSE 5%-LACTATED RINGERS 1,000 ML IV SCH (15:33)
[2025-03-20 05:54] LABS: HCT - HEMATOCRIT 39.3 % (37.0-47.0); HGB - HEMOGLOBIN 12.6 g/dL (12.0-16.0); MEAN PLATELET VOLUME 10.0 fL (7.9-10.8); PLT - PLATELET COUNT 148.0 10^3/uL (130-450); RED CELL DISTRIBUTION WIDTH 17.4 % (12.0-15.0)
[2025-03-20 06:08] LABS: BUN - BLOOD UREA NITROGEN 13.0 mg/dL (6-20); CARBON DIOXIDE - CO2 33.0 mmol/L (21-32); CREATININE 1.0 mg/dL (0.6-1.3); GFR - MDRD 53.0 (>89)
[2025-03-20] MEDS ORDERED: MAGNESIUM SULFATE 1 GM/2 ML VIAL IVP STA (07:27)
[2025-03-20] MEDS: MAGNESIUM SULFATE 2 GRAM 2 GM/50 ML BAG IV ONE (07:56)
--- NOTE | 2025-03-20 10:01 | PROVIDER PROGRESS NOTE ---
Subjective Subjective Subjective: Cyndie Rod is a 80-year-old female with past medical history of HFrEF (EF 20%), uncomplicated opioid dependence, hypertensive cardiomyopathy, hypertension, CKD, atrial fibrillation s/p PPM who presents for acute pancreatitis. Today, she states her abdominal pain is improved. She had two large bowel movements. She denies any fevers or chills. She is worried about her heart failure. Current Medications Current Medications Current Medications: Current Medications Generic Name Dose Route Start Last Admin Trade Name Freq PRN Reason Stop Dose Admin Acetaminophen 1,000 mg 03/15/25 19:00 03/20/25 06:12 Acetaminophen 500 Mg Tablet PO 1,000 mg TID MERE Administration Hydrocodone Bitart/Acetaminophen 1 tab 03/19/25 10:29 03/20/25 07:55 Hydrocod/Acetam 5/325 Mg Tablet PO 1 tab Q4HR PRN Administration Moderate Pain (Level 4-6) Amiodarone HCl 200 mg 03/15/25 09:00 03/19/25 10:09 Amiodarone 200 Mg Tablet PO 200 mg DAILY MERE Administration Apixaban 5 mg 03/15/25 09:00 03/19/25 20:28 Apixaban 5 Mg Tablet PO 5 mg BID MERE Administration Atorvastatin Calcium 20 mg 03/15/25 09:00 03/19/25 10:10 Atorvastatin 10 Mg Tablet PO 20 mg DAILY MERE Administration Bumetanide 1 mg 03/16/25 09:00 03/19/25 20:28 Bumetanide 1 Mg Tablet PO 1 mg BID MERE Administration Docusate Sodium 250 - 500 mg 03/17/25 09:00 03/19/25 10:09 Docusate Sodium 250 Mg Capsule PO 500 mg DAILY MERE Administration Duloxetine HCl 30 mg 03/15/25 09:00 03/19/25 10:09 Duloxetine 30 Mg Capsule PO 30 mg DAILY MERE Administration Fentanyl 1 patch 03/16/25 09:00 03/19/25 10:11 Fentanyl 12 Mcg Patch TOP 1 patch Q3D MERE Administration Fentanyl 1 patch 03/16/25 09:00 03/19/25 10:11 Fentanyl 25 Mcg Patch TOP 1 patch Q3D MERE Administration Furosemide 40 mg 03/15/25 18:52 Furosemide 40 Mg/4 Ml Vial IVP Q6H PRN Dyspnea Gabapentin 100 mg 03/15/25 08:29 03/18/25 08:29 Gabapentin 100 Mg Capsule PO 100 mg PRN PRN Administration PAIN 5-7 Gabapentin 300 mg 03/18/25 12:00 03/19/25 20:28 Gabapentin 300 Mg Capsule PO 300 mg BID MERE Administration Hydromorphone HCl 1 mg 03/18/25 18:45 03/20/25 06:12 Hydromorphone 0.5 Mg/0.5 Ml Syringe IVP 1 mg Q3HR PRN Administration Severe Pain (Level 7-10) Melatonin 3 mg 03/15/25 19:00 03/19/25 20:28 Melatonin 3 Mg Tablet PO 3 mg QPM MERE Administration Metoprolol Succinate 25 mg 03/15/25 09:00 03/19/25 10:09 Metoprolol Succinate 25 Mg Tablet PO 25 mg DAILY MERE Administration Ondansetron HCl 4 mg 03/15/25 16:45 03/17/25 02:19 Ondansetron Odt 4 Mg Tablet TL 4 mg Q6HR PRN Administration Nausea / Vomiting Ondansetron HCl 4 mg 03/15/25 16:45 03/19/25 12:21 Ondansetron 4 Mg/2 Ml Vial IVP 4 mg Q6HR PRN Administration Nausea / Vomiting Polyethylene Glycol 17 gm 03/16/25 09:00 03/19/25 10:08 Polyethylene Glycol 3350 17 Gm Packet PO 17 gm DAILY MERE Administration Senna 8.6 - 17.2 mg 03/16/25 09:00 03/19/25 10:09 Senna 8.6 Mg Tablet PO 17.2 mg DAILY MERE Administration Sodium Chloride 10 ml 03/15/25 16:45 03/19/25 12:21 Sodium Chloride Flush 0.9% 10 Ml Syringe IVP 10 ml PRN PRN Administration NEEDED PER PROVIDER ORDERS Sodium Chloride 10 ml 03/15/25 17:00 03/19/25 23:59 Sodium Chloride Flush 0.9% 10 Ml Syringe IVP 10 ml 0100,0900,1700 MERE Administration Spironolactone 25 mg 03/16/25 09:00 03/19/25 10:09 Spironolactone 25 Mg Tablet PO 25 mg DAILY MERE Administration Trazodone HCl 50 mg 03/15/25 18:29 Trazodone 50 Mg Tablet PO QPM PRN Insomnia Objective Vital Signs/Intake & Output Reviewed Vital Signs: Yes Intake & Output: Intake & Output 03/17/25 03/18/25 03/19/25 03/20/25 23:59 23:59 23:59 23:59 Intake Total 1790 / 1790 851 / 851 1297 / 1297 1191 / 1191 Output Total 1825 / 1825 2100 / 2100 2775 / 2775 Balance -35 / -35 -1249 / -1249 -1478 / -1478 1191 / 1191 Weight (kg) 77.5 kg 78.5 kg 77.5 kg Objective Comments/Other: Constitutional: Overall well-groomed, ill-appearing older adult female who sits semi-Pratt's in [facility]. Integument: Venous stasis dermatitis BLE. Scattered solar lentigines BUE. Skin smooth, warm, dry and intact. HEENT: Wearing visual aids. Normocephalic, atraumatic. Facial features symmetrical at rest and with movement. Respiratory: Lungs diminished bilaterally at the bases. Chest expansion symmetric with unlabored, even respirations Cardiac: Regular S1, S2 heart sounds. No murmur detected. Peripheral Vascular: BLE edema 1+. Warm and non-cyanotic. Gastrointestinal: Tenderness to light palpation in all quadrants, most significant at McBurney's point. Mildly distended. Abdomen is warm, soft, and nontender. Symmetrical, round contour. Bowel tones audible and normoactive. Musculoskeletal: Full ROM in upper and lower extremities. Neurological: Alert, oriented x 4 to self, place, time, situation. Recent and remote memory intact. Calm, cooperative, follows commands. Mood appropriate to situation. Thought process coherent with appropriate judgment. Speech fluent. Lab Results 03/20/25 05:25 03/20/25 05:25 Other Labs: Lab Results x24hrs 03/20/25 03/19/25 Range/Units 05:25 16:34 WBC 9.5 (4.8-10.8) x10^3/uL RBC 4.36 (4.20-5.40) 10^6/uL Hgb 12.6 (12.0-16.0) g/dL Hct 39.3 (37.0-47.0) % MCV 90.1 (81.0-99.0) fL MCH 28.9 (27.0-31.0) pg MCHC 32.1 (32.0-36.0) g/dL RDW 17.4 H (12.0-15.0) % Plt Count 148 (130-450) 10^3/uL MPV 10.0 (7.9-10.8) fL Sodium 137 (135-145) mmol/L Potassium 3.2 L (3.5-4.5) mmol/L Chloride 99 L (101-111) mmol/L Carbon Dioxide 33 H (21-32) mmol/L Anion Gap 5.0 L (6-13) BUN 13 (6-20) mg/dL Creatinine 1.0 (0.6-1.3) mg/dL Estimated GFR (MDRD) 53 L (>89) Glucose 106 H (74-104) mg/dL POC Whole Bld Glucose 101 (70-100) mg/dL Calcium 9.0 (8.5-10.3) mg/dL Magnesium 1.6 L (1.7-2.3) mg/dL Diagnostic Imaging Diagnostic Imaging Results: positive Final report reviewed Assessment/Plan Problem List (1) Pancreatitis: Qualifiers: Acute pancreatitis complication: unspecified Chronicity: acute P ancreatitis type: unspecified pancreatitis type Qualified Code(s): K85.90 - Acute pancreatitis without necrosis or infection, unspecified (2) Leukocytosis: Qualifiers: Leukocytosis type: bandemia Qualified Code(s): D72.825 - Bandemia (3) Abdominal pain: Impression: Patient initially presented with severe epigastric and RUQ abdominal pain with nausea, anorexia. CT abdomen was notable for acute edematous pancreatitis with cystic formations. Repeat CT abdomen done on 03/18 given persistent symptoms and showed stable findings but with large stool burden which may be contributing to symptoms. She also reported increased postprandial pain, bloating. - Advance diet today to CLD. Using less and less parenteral pain medications (2 doses of IV Dilaudid in last 24 hours). - Multimodal analgesic management: o PO Apap-Hydrocodone q4h as needed o Continue IV Dilaudid for severe breakthrough pain o Continue Fentanyl patch for chronic polyarthritis o Continue heat pad - Bowel regimen given imaging with large stool burden: Miralax, Senna, and starting Lactulose. Trialed enema without success 03/18; patient would not like to re-try. Had two large BMs on 03/19. Qualifiers: Abdominal location: generalized Qualified Code(s): R10.84 - Generalized abdominal pain (4) FRIEDA (acute kidney injury): Impression: Resolved. Cr increased from 1.0 to 1.4, now back down to 1.1 on 03/19. She has been producing adequate urine. - Trend BMP - Continue to encourage PO intake - Monitor I/O (5) Hypoglycemia: Impression: On admission patient BG down to 47. She continues to have intermittent hypoglycemia as low as 68. Overall this is inconsistent with pancreatitis, could be related to glucagon dysregulation or patient taking her Empagliflozin with limited oral intake. - Holding Empagliflozin at this time - Hypoglycemia protocol in place, check BG PRN (6) Heart failure: Qualifiers: Heart failure chronicity: chronic Heart failure type: unspecified Q ualified Code(s): I50.9 - Heart failure, unspecified (7) Cardiomyopathy: Impression: Patient has a history of HFrEF (EF 20% in September). She is on GDMT Metoprolol, Empagliflozin, Spironolactone. Unclear why she isn't on an GIL/ARB, however her BP does run soft even during prior hospital admissions which may be a factor. Endorses intermittent SOB at baseline with increased activity, overall not limiting her daily activities; NYHA Class II. Clinically she appears euvolemic, no crackles/rales, BLE edema is improved on my assessment since admission, no JVD. She denies dyspnea, orthopnea. - Continue GDMT medications while inpatient (Metoprolol, Empagliflozin, Spironolactone), holding Empagliflozin for now as above due to hypoglycemia - Scheduled Bumetanide as Torsemide unavailable in formulary - Strict intake/output, daily weights as able Qualifiers: Cardiomyopathy type: unspecified Qualified Code(s): I42.9 - Cardiomyopathy, unspecified (8) Wide-complex tachycardia: (9) History of cardiac pacemaker: (10) History of atrial fibrillation: Impression: Patient with longstanding persistent atrial fibrillation. 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 All likely secondary to her hypertensive versus ischemic cardiomyopathy. She had EKG and troponin on admission that demonstrated stable left bundle branch block and left ventricular hypertrophy. She currently denies chest pain and palpitations. - Continue Metoprolol, Amiodarone, Atorvastatin - Monitor symptomatically for cardiac symptoms - Continue home Eliquis (11) Uncomplicated opioid dependence: Impression: Patient has a history of chronic polyarthritis, mainly in the knees and feet, managed satisfactorily on her home regimen of Fentanyl Patch, Gabapentin, and Duloxetine. 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 - Continue Fentanyl Patch, last changed 03/19 - Continue adjunct home regimen Gabapentin, Duloxetine
[2025-03-20] MEDS: POTASSIUM CHLORIDE 20 MEQ TABLET PO ONE (10:02)
[2025-03-20] MEDS: HYDROmorphone 1 MG/ML CARPUJECT IVP PRN (14:08)
[2025-03-20] MEDS: MULTIVITAMIN W/MINERALS TABLET PO SCH (17:29)
[2025-03-21 05:26] LABS: HCT - HEMATOCRIT 38.1 % (37.0-47.0); HGB - HEMOGLOBIN 12.2 g/dL (12.0-16.0); MEAN PLATELET VOLUME 10.5 fL (7.9-10.8); PLT - PLATELET COUNT 150.0 10^3/uL (130-450); RED CELL DISTRIBUTION WIDTH 17.4 % (12.0-15.0)
[2025-03-21 05:45] LABS: BUN - BLOOD UREA NITROGEN 15.0 mg/dL (6-20); CARBON DIOXIDE - CO2 35.0 mmol/L (21-32); CREATININE 1.1 mg/dL (0.6-1.3); GFR - MDRD 48.0 (>89)
--- NOTE | 2025-03-21 08:05 | PROVIDER PROGRESS NOTE ---
Subjective Subjective Subjective: Cyndie Rod is a 80-year-old female with past medical history of HFrEF (EF 20%), uncomplicated opioid dependence, hypertensive cardiomyopathy, hypertension, CKD, atrial fibrillation s/p PPM who presents for acute pancreatitis. Today, she states her abdominal pain is improved. She is only requiring 1-2 doses of parental pain control. She had two large bowel movements. She denies any fevers or chills. She is worried about her heart failure. Current Medications Current Medications Current Medications: Current Medications Generic Name Dose Route Start Last Admin Trade Name Freq PRN Reason Stop Dose Admin Acetaminophen 1,000 mg 03/15/25 19:00 03/21/25 04:59 Acetaminophen 500 Mg Tablet PO Not Given TID MERE Hydrocodone Bitart/Acetaminophen 1 tab 03/19/25 10:29 03/20/25 22:24 Hydrocod/Acetam 5/325 Mg Tablet PO 1 tab Q4HR PRN Administration Moderate Pain (Level 4-6) Amiodarone HCl 200 mg 03/15/25 09:00 03/20/25 10:02 Amiodarone 200 Mg Tablet PO 200 mg DAILY MERE Administration Apixaban 5 mg 03/15/25 09:00 03/20/25 21:29 Apixaban 5 Mg Tablet PO 5 mg BID MERE Administration Atorvastatin Calcium 20 mg 03/15/25 09:00 03/20/25 10:01 Atorvastatin 10 Mg Tablet PO 20 mg DAILY MERE Administration Bumetanide 1 mg 03/16/25 09:00 03/20/25 21:28 Bumetanide 1 Mg Tablet PO 1 mg BID MERE Administration Docusate Sodium 250 - 500 mg 03/17/25 09:00 03/20/25 10:02 Docusate Sodium 250 Mg Capsule PO 250 mg DAILY MERE Administration Duloxetine HCl 30 mg 03/15/25 09:00 03/20/25 10:02 Duloxetine 30 Mg Capsule PO 30 mg DAILY MERE Administration Fentanyl 1 patch 03/16/25 09:00 03/19/25 10:11 Fentanyl 12 Mcg Patch TOP 1 patch Q3D MERE Administration Fentanyl 1 patch 03/16/25 09:00 03/19/25 10:11 Fentanyl 25 Mcg Patch TOP 1 patch Q3D MERE Administration Furosemide 40 mg 03/15/25 18:52 Furosemide 40 Mg/4 Ml Vial IVP Q6H PRN Dyspnea Gabapentin 100 mg 03/15/25 08:29 03/18/25 08:29 Gabapentin 100 Mg Capsule PO 100 mg PRN PRN Administration PAIN 5-7 Gabapentin 300 mg 03/18/25 12:00 03/20/25 21:28 Gabapentin 300 Mg Capsule PO 300 mg BID MERE Administration Hydromorphone HCl 1 mg 03/20/25 11:49 03/21/25 04:47 Hydromorphone 1 Mg/Ml Carpuject IVP 1 mg Q3HR PRN Administration Severe Pain (Level 7-10) Melatonin 3 mg 03/15/25 19:00 03/20/25 21:28 Melatonin 3 Mg Tablet PO 3 mg QPM MERE Administration Metoprolol Succinate 25 mg 03/15/25 09:00 03/20/25 10:03 Metoprolol Succinate 25 Mg Tablet PO 25 mg DAILY MERE Administration Multivitamins/Minerals 1 tab 03/20/25 17:00 03/20/25 17:29 Multivitamin W/Minerals Tablet PO 1 tab DAILYWM MERE Administration Ondansetron HCl 4 mg 03/15/25 16:45 03/20/25 18:29 Ondansetron Odt 4 Mg Tablet TL 4 mg Q6HR PRN Administration Nausea / Vomiting Ondansetron HCl 4 mg 03/15/25 16:45 03/19/25 12:21 Ondansetron 4 Mg/2 Ml Vial IVP 4 mg Q6HR PRN Administration Nausea / Vomiting Polyethylene Glycol 17 gm 03/16/25 09:00 03/20/25 10:03 Polyethylene Glycol 3350 17 Gm Packet PO 17 gm DAILY MERE Administration Senna 8.6 - 17.2 mg 03/16/25 09:00 03/20/25 10:03 Senna 8.6 Mg Tablet PO 8.6 mg DAILY MERE Administration Sodium Chloride 10 ml 03/15/25 16:45 03/19/25 12:21 Sodium Chloride Flush 0.9% 10 Ml Syringe IVP 10 ml PRN PRN Administration NEEDED PER PROVIDER ORDERS Sodium Chloride 10 ml 03/15/25 17:00 03/21/25 04:48 Sodium Chloride Flush 0.9% 10 Ml Syringe IVP 10 ml 0100,0900,1700 MERE Administration Spironolactone 25 mg 03/16/25 09:00 03/20/25 10:03 Spironolactone 25 Mg Tablet PO 25 mg DAILY MERE Administration Trazodone HCl 50 mg 03/15/25 18:29 Trazodone 50 Mg Tablet PO QPM PRN Insomnia Objective Vital Signs/Intake & Output Reviewed Vital Signs: Yes Intake & Output: Intake & Output 03/18/25 03/19/25 03/20/25 03/21/25 23:59 23:59 23:59 23:59 Intake Total 851 / 851 1297 / 1297 1631 / 1631 Output Total 2100 / 2100 2775 / 2775 300 / 300 1000 / 1000 Balance -1249 / -1249 -1478 / -1478 1331 / 1331 -1000 / -1000 Weight (kg) 77.5 kg 78.5 kg 77.5 kg 72 kg Objective Comments/Other: Constitutional: Overall well-groomed, ill-appearing older adult female who sits semi-Pratt's in [facility]. Integument: Venous stasis dermatitis BLE. Scattered solar lentigines BUE. Skin smooth, warm, dry and intact. HEENT: Wearing visual aids. Normocephalic, atraumatic. Facial features symmetrical at rest and with movement. Respiratory: Lungs diminished bilaterally at the bases. Chest expansion symmetric with unlabored, even respirations Cardiac: Regular S1, S2 heart sounds. No murmur detected. Peripheral Vascular: BLE edema 1+. Warm and non-cyanotic. Gastrointestinal: Tenderness to light palpation in all quadrants, most significant at McBurney's point. Mildly distended. Abdomen is warm, soft, and nontender. Symmetrical, round contour. Bowel tones audible and normoactive. Musculoskeletal: Full ROM in upper and lower extremities. Neurological: Alert, oriented x 4 to self, place, time, situation. Recent and remote memory intact. Calm, cooperative, follows commands. Mood appropriate to situation. Thought process coherent with appropriate judgment. Speech fluent. Lab Results 03/21/25 05:14 03/21/25 05:14 Other Labs: Lab Results x24hrs 03/21/25 Range/Units 05:14 WBC 7.0 (4.8-10.8) x10^3/uL RBC 4.22 (4.20-5.40) 10^6/uL Hgb 12.2 (12.0-16.0) g/dL Hct 38.1 (37.0-47.0) % MCV 90.3 (81.0-99.0) fL MCH 28.9 (27.0-31.0) pg MCHC 32.0 (32.0-36.0) g/dL RDW 17.4 H (12.0-15.0) % Plt Count 150 (130-450) 10^3/uL MPV 10.5 (7.9-10.8) fL Sodium 137 (135-145) mmol/L Potassium 3.2 L (3.5-4.5) mmol/L Chloride 96 L (101-111) mmol/L Carbon Dioxide 35 H (21-32) mmol/L Anion Gap 6.0 (6-13) BUN 15 (6-20) mg/dL Creatinine 1.1 (0.6-1.3) mg/dL Estimated GFR (MDRD) 48 L (>89) Glucose 88 (74-104) mg/dL Calcium 9.3 (8.5-10.3) mg/dL Magnesium 1.9 (1.7-2.3) mg/dL Diagnostic Imaging Diagnostic Imaging Results: positive Final report reviewed Assessment/Plan Problem List (1) Pancreatitis: Qualifiers: Acute pancreatitis complication: unspecified Chronicity: acute P ancreatitis type: unspecified pancreatitis type Qualified Code(s): K85.90 - Acute pancreatitis without necrosis or infection, unspecified (2) Leukocytosis: Qualifiers: Leukocytosis type: bandemia Qualified Code(s): D72.825 - Bandemia (3) Abdominal pain: Impression: Patient initially presented with severe epigastric and RUQ abdominal pain with nausea, anorexia. CT abdomen was notable for acute edematous pancreatitis with cystic formations. Repeat CT abdomen done on 03/18 given persistent symptoms and showed stable findings but with large stool burden. Advance diet today to FLD. Stop IV Dilaudid today. Increased [place] as needed to 10mg every 6 hours. Continue Fentanyl patch for chronic polyarthritis. Continue heat pad. Continue aggressive bowel regimen given imaging with large stool burden: Miralax, Senna. Trialed enema without success 03/18; patient would not like to re-try. Had two large BMs on 03/19. Qualifiers: Abdominal location: generalized Qualified Code(s): R10.84 - Generalized abdominal pain (4) FRIEDA (acute kidney injury): Impression: Resolved. Cr increased from 1.0 to 1.4, now back down to normal. She has been producing adequate urine. Trend BMP, continue to encourage PO intake, strict monitoring of ins and outs. (5) Hypoglycemia: Impression: Patient continues to have intermittent hypoglycemia as low as 68. Encourage P.O. intake with advancement of diet. Holding Empagliflozin at this time. Hypoglycemia protocol in place, check BG PRN. (6) Heart failure: Qualifiers: Heart failure chronicity: chronic Heart failure type: unspecified Q ualified Code(s): I50.9 - Heart failure, unspecified (7) Cardiomyopathy: Impression: Patient has a history of HFrEF (EF 20% in September). She is on GDMT Metoprolol, Empagliflozin, Spironolactone. Unclear why she isn't on an GIL/ARB, however her BP does run soft even during prior hospital admissions which may be a factor. Endorses intermittent SOB at baseline with increased activity, overall not limiting her daily activities; NYHA Class II. Clinically she appears euvolemic, no crackles/rales, BLE edema is improved on my assessment since admission, no JVD. She denies dyspnea, orthopnea. Continue metoprolol, spironolactone. Holding Empagliflozin for now as above due to hypoglycemia. Scheduled Bumetanide as Torsemide unavailable in formulary. Strict intake/output, daily weights as able. Qualifiers: Cardiomyopathy type: unspecified Qualified Code(s): I42.9 - Cardiomyopathy, unspecified (8) Wide-complex tachycardia: (9) History of cardiac pacemaker: (10) History of atrial fibrillation: Impression: Patient with longstanding persistent atrial fibrillation. 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 All likely secondary to her hypertensive versus ischemic cardiomyopathy. She had EKG and troponin on admission that demonstrated stable left bundle branch block and left ventricular hypertrophy. She currently denies chest pain and palpitations. Continue Metoprolol, Amiodarone, Atorvastatin, Eliquis. Monitor symptomatically for cardiac symptoms. (11) Uncomplicated opioid dependence: Impression: Patient has a history of chronic polyarthritis, mainly in the knees and feet, managed satisfactorily on her home regimen of Fentanyl Patch, Gabapentin, and Duloxetine. 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 Continue Fentanyl patch, as per home dose. Continue adjunct home regimen Gabapentin, Duloxetine.
[2025-03-21] MEDS: PANTOPRAZOLE 40 MG TABLET PO PRN (10:50)
[2025-03-21] MEDS: POTASSIUM CHLORIDE 20 MEQ TABLET PO ONE (10:50)
[2025-03-21] MEDS: HYDROcod/ACETAM 10 MG/325 MG TABLET PO PRN (20:26)
[2025-03-22 05:51] LABS: HCT - HEMATOCRIT 37.2 % (37.0-47.0); HGB - HEMOGLOBIN 11.9 g/dL (12.0-16.0); MEAN PLATELET VOLUME 10.3 fL (7.9-10.8); PLT - PLATELET COUNT 142.0 10^3/uL (130-450); RED CELL DISTRIBUTION WIDTH 17.4 % (12.0-15.0)
[2025-03-22 06:12] LABS: BUN - BLOOD UREA NITROGEN 17.0 mg/dL (6-20); CARBON DIOXIDE - CO2 37.0 mmol/L (21-32); CREATININE 1.1 mg/dL (0.6-1.3); GFR - MDRD 48.0 (>89)
--- NOTE | 2025-03-22 07:48 | Discharge Summary ---
Discharge Summary Admit Date: 03/15/25 Discharge Date: 03/22/25 Discharging Provider: Dr. Spencer Jo Primary Care Provider: [employer] Code Status: Do Not Attempt Resuscitation Discharge Facility Name: Home Health DIAGNOSES Discharge Diagnoses with Status of Each Condition: Pancreatitis, leukocytosis, abdominal pain Patient initially presented with severe epigastric and RUQ abdominal pain with nausea, anorexia. CT abdomen was notable for acute edematous pancreatitis with cystic formations. Repeat CT abdomen done on 03/18 given persistent symptoms and showed stable findings but with large stool burden. Advanced diet to soft diet. Will discharge with a few days of [place] as needed to 10mg every 6 hours. Continue Fentanyl patch for chronic polyarthritis. Continue heat pad. Continue aggressive bowel regimen given imaging with large stool burden: Miralax, Senna. Patient will need repeat CT scan in 3 months to ensure resolution. FRIEDA (acute kidney injury) Resolved. Cr increased from 1.0 to 1.4, now back down to normal. She has been producing adequate urine. Trend BMP, continue to encourage PO intake, strict monitoring of ins and outs. Hypoglycemia Patient continues to have intermittent hypoglycemia as low as 68. Encourage P.O. intake with advancement of diet. Holding Empagliflozin at this time. Cardiomyopathy Patient has a history of HFrEF (EF 20% in September). She is on GDMT Metoprolol, Empagliflozin, Spironolactone. Unclear why she isn't on an GIL/ARB, however her BP does run soft even during prior hospital admissions which may be a factor. Endorses intermittent SOB at baseline with increased activity, overall not limiting her daily activities; NYHA Class II. Clinically she appears euvolemic, no crackles/rales, BLE edema is improved on my assessment since admission, no JVD. She denies dyspnea, orthopnea. Continue metoprolol, spironolactone. Holding Empagliflozin for now as above due to hypoglycemia. Continue Torsemide. Wide-complex tachycardia, history of cardiac pacemaker, atrial fibrillation Patient with longstanding persistent atrial fibrillation. 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 All likely secondary to her hypertensive versus ischemic cardiomyopathy. She had EKG and troponin on admission that demonstrated stable left bundle branch block and left ventricular hypertrophy. She currently denies chest pain and palpitations. Continue Metoprolol, Amiodarone, Atorvastatin, Eliquis. Monitor symptomatically for cardiac symptoms. Uncomplicated opioid dependence Patient has a history of chronic polyarthritis, mainly in the knees and feet, managed satisfactorily on her home regimen of Fentanyl Patch, Gabapentin, and Duloxetine. 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 Continue Fentanyl patch, as per home dose. Continue adjunct home regimen Gabapentin, Duloxetine. HPI History of Present Illness: Per [employer] student: Cyndie Rod is a 80-year-old female with past medical history of HFrEF, cardiomyopathy, a-fib, and wide complex tachycardia s/p bi-ventricular pacemaker who presents with 5 days of progressively worsening abdominal pain and CT abdomen findings consistent with pancreatitis. Ms. Rod's story begins on 03/10 when she felt constipated with general malaise, for which she took senna x 3 without relief. 03/11, she continued to feel constipation/malaise and consumed a dose of miralax and colace. She states she listened to her bowel tones which were still present. On 03/12, she took another dose of miralax and passed hard stool, which she describes as "1.5-2in rocks with some rabbit pellets." Evening of 03/13, her abdominal discomfort turned into severe abdominal pain for which she called her primary care provider, who advised her to seek urgent medical evaluation; she subsequently presented to [facility] ED. She describes her pain as 9-10/10 and sharp, cramping, tender, in the generalized abdomen. The location of pain varies, at times it is in the bilateral flank and sometimes localized to the RUQ. There is associated nausea, without vomiting. There is midepigastric tenderness. She has had decreased appetite, with only clear liquid consumption since 03/10. She hasn't noted any other bowel abnormalities aside from constipation, no melena. No urinary habit changes or hematuria. In the ED, workup was remarkable for leukocytosis to 12.9. UA neg. CT abdomen notable for acute interstitial edematous pancreatitis. She was started on maintenance NS. 03/15 AM she was hypoglycemic as low as BG 47 and switched to D5NS. She recieved analgesia for her abdominal pain with Dilaudid 0.5mg, for which she required every 2-4 hours. She remained in the ED until evening of 03/15 due to bed inavailability at [facility]. She is admitted to the Hospitalist service for further evaluation of pancreatitis. CONSULTS | PROCEDURES Procedures: CT abdomen x 2 HOSPITAL COURSE Hospital Course: Cyndie Rod is a 80-year-old female with past medical history of HFrEF (EF 20%), uncomplicated opioid dependence, hypertensive cardiomyopathy, hypertension, CKD, atrial fibrillation s/p PPM who presents for intractable nausea, vomiting, abdominal pain. CT abdomen/pelvis confirmed the diagnosis of acute pancreatitis. She does not drink alcohol, no gallstones were noted on CT abdomen. She did start new guideline directed medical therapy so this may be drug induced pancreatitis. She was tried on IV fluids, pain control. Despite bowel rest for about 4 days, she did not improve. Repeat CAT scan was completed, and no worsening of pseudocysts were noted, nor was there any infection noted. She slowly improved with time. IV pain medications were stopped, and patient was tolerating p.o. intake well. She was deemed stable for discharge home. She will need close follow-up with her hydrochloric area supervisor. She also needs to see her primary care provider. She needs a repeat CAT scan in about 3 months. ALLERGIES Allergies Allergy/AdvReac Type Severity Reaction Status Date / Time cephalexin (From Keflex) Allergy Severe Rash Verified 03/14/25 16:30 meperidine (From Demerol) AdvReac Intermediate Nausea Verified 03/14/25 16:30 oxycodone AdvReac Intermediate Nausea Verified 03/14/25 16:30 MEDICATIONS Ambulatory Orders Medication Instructions Recorded Confirmed apixaban 5 mg tablet (Eliquis) 5 mg PO BID 03/03/24 atorvastatin 20 mg tablet 20 mg PO DAILY 03/03/2402/26 fentanyl 12 mcg/hr transdermal 1 patch topical Q72H 03/14/25 patch gabapentin 300 mg capsule 300 mg PO BID 03/03/2403/14 ondansetron HCl 4 mg tablet 4 mg PO Q8H PRN nausea and 03/03/24 03/14/25 vomiting #20 tabs amiodarone 200 mg tablet 200 mg PO DAILY 10/21/24 duloxetine 30 mg capsule,delayed 30 mg PO DAILY 03/14/25 release fentanyl 25 mcg/hr transdermal 1 patch transdermal Q72 H 10/21/24 03/14/25 patch gabapentin 100 mg capsule 100 mg PO QPM PRN pain 10/2103/14/25 potassium chloride 20 mEq 20 meq PO DAILY #30 tabs 03/14/25 tablet,extended release(part/cryst) (Klor-Con M) empagliflozin 10 mg tablet 10 mg PO DAILY 03/14/25 (Jardiance) Held on 03/22/25. Instructions: Resume on 04/05/25. nystatin 100,000 unit/gram topical 1 applic topical DA TOMÁS PRN rash 03/14/25 03/14/25 cream nystatin 100,000 unit/gram topical 1 applic topical DA TOMÁS rash 03/14/25 03/14/25 powder spironolactone 25 mg tablet 25 mg PO DAILY 03/14/25 torsemide 20 mg tablet 20 mg PO BID 03/14/25 omeprazole 40 mg capsule,delayed 40 mg PO DAILY PRN GE RD 03/16/25 03/16/25 release hydrocodone 10 mg-acetaminophen 1 tab PO Q4HR PRN Mode rate Pain 03/22/25 325 mg tablet (Level 4-6) #14 tabs metoprolol succinate 25 mg 25 mg PO DAILY #30 tabs tablet,extended release 24 hr PHYSICAL EXAM AT DISCHARGE Vital Signs: Vital Signs x48h Temp Pulse Resp BP Pulse Ox 03/22/25 16:00 97.7 F 71 14 95/54 L 94 Constitutional: Overall well-groomed, ill-appearing older adult female who sits semi-Pratt's in hospital bed in [facility]. Integument: Venous stasis dermatitis BLE. Scattered solar lentigines BUE. Skin smooth, warm, dry and intact. HEENT: Wearing visual aids. Normocephalic, atraumatic. Facial features symmetrical at rest and with movement. Respiratory: Lungs diminished bilaterally at the bases. Chest expansion symmetric with unlabored, even respirations Cardiac: Regular S1, S2 heart sounds. No murmur detected. Peripheral Vascular: BLE edema 1+. Warm and non-cyanotic. Gastrointestinal: Tenderness to light palpation in all quadrants, most significant at McBurney's point. Abdomen is warm, soft, and nontender. Symmetrical, round contour. Bowel tones audible and normoactive. Musculoskeletal: Full ROM in upper and lower extremities. Neurological: Alert, oriented x 4 to self, place, time, situation. Recent and remote memory intact. Calm, cooperative, follows commands. Mood appropriate to situation. Thought process coherent with appropriate judgment. Speech fluent. LABS 03/22/25 05:14 03/22/25 05:14 DIAGNOSTIC IMAGING Diagnostic Imaging Results: Final report reviewed FOLLOW UP Follow Up: Follow up PCP. Follow up general surgery TIME SPENT Time Spent in Discharge (Minutes): 35 Discharge Plan Discharge Patient Disposition: 06 Home Health Service Condition: Good Prescriptions: New hydrocodone-acetaminophen 10-325 mg Tablet 1 tab PO Q4HR PRN (Reason: Moderate Pain (Level 4-6)) Qty: 14 0RF metoprolol succinate 25 mg Tablet Extended Release 24 Hr 25 mg PO DAILY Qty: 30 0RF Continued Eliquis 5 mg tablet 5 mg PO BID atorvastatin 20 mg tablet 20 mg PO DAILY Patient Comments: take 1 tablet by mouth once daily fentanyl 12 mcg/hr patch 72 hour 1 patch topical Q72H Patient Comments: apply 1 patch to SKIN every 72 hours for chronic pain ROTATE APPLICATION SITE. MUST LAST 30 DAYS gabapentin 300 mg capsule 300 mg PO BID Patient Comments: take 1 capsule by mouth twice a day ondansetron HCl 4 mg tablet 4 mg PO Q8H PRN (Reason: nausea and vomiting) Qty: 20 0RF amiodarone 200 mg tablet 200 mg PO DAILY Patient Comments: take 1 tablet by mouth once daily duloxetine 30 mg capsule,delayed release(DR/EC) 30 mg PO DAILY Patient Comments: take 1 capsule by mouth once daily gabapentin 100 mg capsule 100 mg PO QPM PRN (Reason: pain) Patient Comments: take 1 capsule by mouth once daily at bedtime if needed IN ADDITION TO 300 MG CAPSULE fentanyl 25 mcg/hr patch 72 hour 1 patch transdermal Q72H Rx Instructions: Apply 1 patch to skin every 72 hours potassium chloride [Klor-Con M20] 20 mEq tablet,ER particles/crystals 20 meq PO DAILY Qty: 30 2RF torsemide 20 mg tablet 20 mg PO BID Patient Comments: morning and after lunch spironolactone 25 mg tablet 25 mg PO DAILY nystatin 100,000 unit/gram powder 1 applic TOPICAL DAILY nystatin 100,000 unit/gram cream 1 applic TOPICAL DAILY PRN (Reason: rash) omeprazole 40 mg capsule,delayed release(DR/EC) 40 mg PO DAILY PRN (Reason: GERD) Patient Comments: TAKE 1 CAPSULE BY MOUTH ONCE DAILY 30 MINUTES BEFORE A MEAL Held Jardiance 10 mg tablet 10 mg PO DAILY Hold Instructions: Resume on 04/05/25. Discontinued Multaq 400 mg tablet 400 mg PO BID Patient Comments: take 1 tablet by mouth three times a day with meals metoprolol succinate 50 mg tablet extended release 24 hr 50 mg PO DAILY Activity Restrictions: Activity as Tolerated Diet: Low Sodium Health Concerns: You are being discharged after treatment for pancreatitis. - Diet: You may eat regular food as tolerated. Start with small, low-fat meals and gradually increase the amount over several days. Avoid fried foods, fatty meats, and rich desserts. If you have trouble eating or develop nausea, vomiting, or severe pain, contact your healthcare provider. - Pain Control: Take prescribed pain medications as directed. If pain worsens or is not controlled, seek medical attention. I am sending you home with a handful of opioid pain medications. Please supplement with Tylenol as needed. Only take the [place] for severe pain. - Activity: Rest as needed, but gentle activity is encouraged. Avoid strenuous exercise until cleared by your provider. Warning Signs: Call your doctor or go to the emergency room if you have: - Severe or worsening abdominal pain - Persistent vomiting - Fever or chills - Yellowing of your skin or eyes - Difficulty eating or drinking Follow-up: Schedule a follow-up appointment as directed. You may need blood tests or imaging to monitor your recovery. If you had severe pancreatitis, watch for symptoms of diabetes (increased thirst, urination, or unexplained weight loss) or digestive problems (diarrhea, oily stools). As discussed, you need close follow-up with your hydrochloric area supervisor and core extruder. I understand that you got a call that states that your heart function is worse than expected, and so this follow-up is very important. You do not have the typical reasons for pancreatitis including alcohol abuse or gallstones or high triglyceride levels. It may be due to medication side effect. You started a few medications in the last few months, so it is hard to tell which one is the culprit. While you were here, your Jardiance was held as you are having hypoglycemic episodes. Please check in with your primary care provider or your hydrochloric area supervisor before resuming. You will also need a repeat CT scan to ensure resolution of pancreatitis in 3 months. Your PCP will provide you with this. The only other medication change that we made was decreasing your metoprolol dose. Your blood pressure was on the softer side while you have been here. Please take it easy and advance your diet as stated above. I have also ordered home health for you to assist you with living at home. We are so glad you're feeling better; thank you for allowing us to take care of you. Print Language: Turkmen Patient Instructions: Understanding Pancreatitis Stand Alone Forms: PCP List Vitals documented within 30 minutes of discharge?: Yes
[2025-03-22] MEDS: LACTULOSE 10 GM /15 ML UDC PO SCH (11:57)
[2025-03-22 17:33] VITALS: BP 99/47; TEMP 97.9; O2SAT 95
== END 2025-03-22 17:34 | disposition home health service (06) | DRG 439 ==
LOC: ED 14:40 → MS2 03-15 14:18
PROVIDERS: ADMIT Student in an Organized Health Care Education/Training Program; ATTEND Student in an Organized Health Care Education/Training Program
DX: D72.829 Elevated white blood cell count, unspecified; G89.29 Other chronic pain; K85.90 Acute pancreatitis without necrosis or infection, unspecified; E16.2 Hypoglycemia, unspecified; I50.22 Chronic systolic (congestive) heart failure; R00.0 Tachycardia, unspecified; K85.80 Other acute pancreatitis without necrosis or infection; Z63.4 Disappearance and death of family member; M15.9 Polyosteoarthritis, unspecified; Z79.891 Long term (current) use of opiate analgesic; Z79.899 Other long term (current) drug therapy; I87.8 Other specified disorders of veins; Z87.891 Personal history of nicotine dependence; Z79.01 Long term (current) use of anticoagulants; Z66 Do not resuscitate; Z95.0 Presence of cardiac pacemaker; N18.9 Chronic kidney disease, unspecified; E87.6 Hypokalemia; N17.9 Acute kidney failure, unspecified; L30.8 Other specified dermatitis; I13.0 Hypertensive heart and chronic kidney disease with heart failure and stage 1 through stage 4 chronic kidney disease, or unspecified chronic kidney disease; I43 Cardiomyopathy in diseases classified elsewhere; I48.11 Longstanding persistent atrial fibrillation